=== PATIENT | male | born 1985 | race Caucasian/White ===

== ENCOUNTER 2020-09-13 09:32 | Outpatient (REF) | payer OTHER, SELFPAY ==
[2020-09-13 11:15] LABS: Hematocrit 41.2 % (42-52); Hemoglobin 14.1 g/dl (14.0-18.0); Mean Corpuscular HGB Conc 34.2 g/dl (31.0-36.0); Mean Corpuscular Hemoglobin 30.5 pg (27.0-33.0); Mean Platelet Volume 10.5 fL (9.4-12.4); Platelet Count 293 X10*3/uL (160-400); Red Blood Count 4.63 X10*6/uL (4.60-5.80); Red Cell Distribution Width 12.6 % (11.0-16.0)
[2020-09-13 11:35] LABS: Alanine Aminotransferase 27 U/L (0-40); Albumin Level 4.5 g/dL (3.5-5.0); Alkaline Phosphatase 70 U/L (39-117); Anion Gap 13 (12-20); Aspartate Amino Transferase 22 U/L (5-37); Bilirubin Total 0.9 mg/dL (0.0-1.0); Blood Urea Nitrogen 14 mg/dL (9-16); Calcium 9.6 mg/dL (8.4-10.2); Carbon Dioxide 27 mmol/L (22-29); Chloride 104 mmol/L (96-108); Cholesterol 217 mg/dL; Estimated Glomerular Filt Rate > 60; Glucose Fasting 83 mg/dL (60-99); HDL Cholesterol 45 mg/dL; LDL Cholesterol Calculated 158 mg/dl; Potassium 4.2 mmol/L (3.3-5.1); Sodium 140 mmol/L (135-145); Total Protein 7.8 g/dL (6.5-8.0); Triglycerides 70 mg/dL
== END 2020-09-13 09:33 | disposition home or self-care (01) ==
LOC: HO.HMGCLDS 09:32
PROVIDERS: PCP Internal Medicine; Visit Provider Internal Medicine
DX: Z00.00 Encounter for general adult medical examination without abnormal findings (principal)
CPT/HCPCS: 36415; 80053; 80061; 85027

== ENCOUNTER 2021-02-27 14:18 | Outpatient (REF) | payer OTHER, SELFPAY ==
[2021-02-27 16:56] LABS: Cholesterol 239 mg/dL; HDL Cholesterol 42 mg/dL; LDL Cholesterol Calculated 177 mg/dl; Triglycerides 104 mg/dL
[2021-03-02 09:01] LABS: SARS COV2 IgG Negative (Negative)
== END 2021-02-27 14:19 | disposition home or self-care (01) ==
LOC: HO.HMGCLDS 14:18
PROVIDERS: Absent Provider Physician Assistant Medical; PCP Internal Medicine; Visit Provider Internal Medicine
DX: Z00.00 Encounter for general adult medical examination without abnormal findings (principal); Z20.822 Contact with and (suspected) exposure to COVID-19; E78.5 Hyperlipidemia, unspecified
CPT/HCPCS: 36415; 80061; 86769

== ENCOUNTER 2021-09-15 08:42 | Outpatient (REF) | payer OTHER, SELFPAY ==
[2021-09-15 11:08] LABS: MANUAL DIFF FLAG NO
[2021-09-15 11:26] LABS: Basophils Percent Auto 0.5 % (0-2); Eosinophils Absolute Auto 0.1 X10*3/uL (0.0-0.4); Eosinophils Percent Auto 1.3 % (0-4); Hematocrit 40.4 % (42.0-52.0); Hemoglobin 13.8 g/dl (14.0-18.0); Imm Gran Abs Auto 0.02 X10*3/uL (0.00-0.03); Imm Gran Pct Auto 0.5 % (0.0-0.4); Lymphocytes Absolute Auto 1.3 X10*3/uL (1.2-4.9); Lymphocytes Percent Auto 34.4 % (20-40); Mean Corpuscular HGB Conc 34.2 g/dl (31.0-36.0); Mean Corpuscular Hemoglobin 30.9 pg (27.0-33.0); Mean Corpuscular Volume 90.4 fL (80.0-98.0); Mean Platelet Volume 10.8 fL (9.4-12.4); Monocytes Absolute Auto 0.3 X10*3/uL (0.1-1.2); Monocytes Percent Auto 8.9 % (2-11); Neutrophils Absolute Auto 2.1 x10*3/uL (2.0-8.3); Neutrophils Percent Auto 54.4 % (45-73); Platelet Count 290 X10*3/uL (160-400); Red Blood Count 4.47 X10*6/uL (4.60-5.80); Red Cell Distribution Width 13.2 % (11.0-16.0); White Blood Count 3.8 X10*3/uL (4.8-10.8)
[2021-09-15 11:55] LABS: Alanine Aminotransferase 41 U/L (0-40); Albumin Level 4.4 g/dL (3.5-5.0); Alkaline Phosphatase 55 U/L (39-117); Anion Gap 12 (12-20); Aspartate Amino Transferase 21 U/L (5-37); Bilirubin Total 0.6 mg/dL (0.0-1.0); Blood Urea Nitrogen 13 mg/dL (9-16); Calcium 9.5 mg/dL (8.4-10.2); Carbon Dioxide 27 mmol/L (22-29); Chloride 104 mmol/L (96-108); Cholesterol 202 mg/dL; Estimated Glomerular Filt Rate > 60; Glucose Fasting 98 mg/dL (60-99); HDL Cholesterol 42 mg/dL; LDL Cholesterol Calculated 140 mg/dl; Potassium 4.3 mmol/L (3.3-5.1); Sodium 139 mmol/L (135-145); Total Protein 7.5 g/dL (6.5-8.0); Triglycerides 100 mg/dL
== END 2021-09-15 08:43 | disposition home or self-care (01) ==
LOC: HO.HMGCLDS 08:42
PROVIDERS: PCP Internal Medicine; Visit Provider Internal Medicine
DX: Z00.00 Encounter for general adult medical examination without abnormal findings (principal); E78.5 Hyperlipidemia, unspecified
CPT/HCPCS: 36415; 80053; 80061; 85025

== ENCOUNTER 2022-05-19 06:14 | Outpatient (REF) | payer OTHER, SELFPAY | END 2022-05-19 06:15 | disposition home or self-care (01) | LOC: HO.HMGCLDS 06:14 | PROVIDERS: PCP Internal Medicine; Visit Provider Internal Medicine | DX: Z00.00 Encounter for general adult medical examination without abnormal findings (principal) | CPT/HCPCS: 36415; 86787 ==

== ENCOUNTER 2022-08-01 07:02 | Outpatient (REF) | payer OTHER, SELFPAY | END 2022-08-01 07:03 | disposition home or self-care (01) | LOC: HO.HMGCLDS 07:02 | PROVIDERS: PCP Internal Medicine; Visit Provider Internal Medicine | DX: Z00.00 Encounter for general adult medical examination without abnormal findings (principal) | CPT/HCPCS: 36415; 86735; 86762; 86765 ==

== ENCOUNTER 2022-09-16 10:23 | Outpatient (AMB) | payer OTHER, SELFPAY ==
[2022-09-16 10:52] VITALS: BP 122/84; PULSE 84; O2SAT 98; BMI 34.7
--- NOTE | 2022-09-16 10:52 | A.OFFPC_ITS ---
Vital Signs 09/16/22 10:52 Height 5 ft 10 in Weight 242 lb BMI 34.7 BP 122/84 Blood Pressure Location Lt brachial Position Sitting Pulse 84 Pulse Source Pulse Oximeter Pulse Oximetry (%) 98 Oxygen Delivery Method Room Air Intake Visit Reasons: PE Intake Note: Pt is here today for PE. Allergies No Known Allergies Allergy (Verified 09/16/22 10:54) Medication List - Last Reconciled 09/16/22 by Silva Arriaga MD No Known Home Meds Tobacco use date assessed: 09/16/22 Dental Screening Dental Screen Date: 09/16/22 Did you have a dental visit in the last 12 months?: Yes Did you have a dental problem in the last 6 months where you did not have access to dental care?: No Was dental information given to patient?: Patient has dentist HPI PE HPI Details Patient presents for physical PFSH Medical History Annual physical exam Hyperlipidemia Family History Father No problems noted. Mother Breast cancer Social History Household Members Other:: , works for [employer] Housing: House Patient Tobacco Use Status: Never used Tobacco e-Cigarette/Vaping Use: Never Used Current occupational status: unemployed Cognitive needs: No Hearing needs: No Vision needs: Yes (contacts) Questionnaire PHQ-9 Over the last 2 weeks, how often have you been bothered by any of the following problems? 1. Little interest or pleasure in doing things: not at all 2. Feeling down, depressed, or hopeless: not at all 3. Trouble falling or staying asleep, or sleeping too much: not at all 4. Feeling tired or having little energy: not at all 5. Poor appetite or overeating: not at all 6. Feeling bad about yourself - or that you are a failure or have let yourself or your family down: not at all 7. Trouble concentrating on things, such as reading the newspaper or watching television: not at all 8. Moving or speaking so slowly that other people could have noticed. Or the opposite - being so fidgety or restless that you have been moving around a lot more than usual: not at all 9. Thoughts that you would be better off or of hurting yourself in some way: not at all Total score: 0 Depression Screening Interpretation: Negative Source: Developed by Drs. Peter Cintron, Jessenia Nelson, Dennis Christopher and colleagues, with an educational tamra from [employer]. Thrive Questionnaire Date Thrive assessed: 09/16/22 I am a: Patient What is your living situation today?: I have a steady place to live Within the past 12 months, did the food you bought not last and you didn't have the money to get more?: Never true Within the past 12 months, did you worry whether your food would run out before you got money to buy more?: Never true Do you have trouble paying for medicines?: No Do you have trouble getting transportation to medical appointments?: No Do you have trouble paying your heating and electricity bill?: No Do you have trouble taking care of your child, family member or friend?: No Do you have trouble with day-to-day activities such as bathing, preparing meals, shopping, managing finances, etc.?: No Are you currently unemployed and looking for a job?: No Are you interested in more education?: No Please select the resources that you would like help with: None Currently or been in a relationship where the following occur: no concerns reported AUDIT C Alcohol Use Questionnaire (AUDIT-C) 1. How often do you have a drink containing alcohol?: Never 3. How often do you have six or more drinks on one occasion?: Never Total Score: 0 ARABELLA-7 AMB Questionnaire ARABELLA-7 Date ARABELLA - 7 assessed: 09/16/22 Feeling nervous, anxious, or on edge: 0 = Not at all Not being able to stop or control worryin = Not at all Worrying too much about different things: 0 = Not at all Trouble relaxin = Not at all Being so restless that it is hard to sit still: 0 = Not at all Becoming easily annoyed or irritable: 0 = Not at all Feeling afraid as if something awful might happen: 0 = Not at all Total ARABELLA-7 score (0-4 normal; 5-9 mild; 10-14 moderate; 15-21 severe): 0 Source: Developed by Drs. Peter LJessenia Whitmore Kurt Kroenke and colleagues, with an educational tamra from [employer]. Review of Systems Const All systems reviewed & are unremarkable except as noted in HPI and below Reports no additional complaints Eyes Reports no additional complaints ENT Reports no additional complaints Card Reports no additional complaints Resp Reports no additional complaints GI Reports no additional complaints Reports no additional complaints Physical exam (Primary Care) Vital Signs: Last Vital Signs Pulse 84 09/16/22 10:52 BP 122/84 09/16/22 10:52 Pulse Ox 98 09/16/22 10:52 Oxygen Delivery Method Room Air 09/16/22 10:52 BMI result Body Mass Index 34.7 Tobacco/Smoking Status: Tobacco use Status Tobacco use date assessed 09/16/22 09/16/22 10:58 Patient Tobacco Use Status Never used Tobacco 09/16/22 10:58 e-Cigarette/Vaping Use Never Used 09/16/22 10:52 PHQ-9: PHQ-9 Score PHQ-9: Total score 0 09/16/22 10:58 Depression Screening Interpretation: Negative Thrive Assessment: Date of Thrive Assessment Date Thrive assessed 09/16/22 09/16/22 10:58 Currently or been in a relationship where the following occur: no concerns reported Const General: no acute distress HENMT Ears: hearing grossly normal bilaterally Throat: Yes posterior oropharynx normal Neck Neck: Yes supple Resp Effort & Inspection: normal respiratory effort Auscultation: clear to auscultation bilaterally Cardio Rhythm: regular rhythm Heart sounds: S1 normal heart sound present and S2 normal heart sound present GI Inspection: Yes normal to inspection Palpation (GI): Soft to palpation Percussion: Yes normal to percussion Auscultation: normal bowel sounds Assessment and Plan Assessment & Plan (1) Anemia: Code(s): D64.9 - Anemia, unspecified Plan: Check iron and B12 level (2) Hyperlipidemia: Code(s): E78.5 - Hyperlipidemia, unspecified Plan: Low-cholesterol diet and regular exercise discussed with the patient (3) Annual physical exam: Code(s): Z00.00 - Encounter for general adult medical examination without abnormal findings Plan: Patient will return for fasting blood work. Orders: Orders Comprehensive [place]. Panel Fast Today D64.9 - Anemia, unspecified, E78.5 - Hyperlipidemia, unspecified, Z00.00 - Encounter for general adult medical examination without abnormal findings Lipid Panel Today D64.9 - Anemia, unspecified, E78.5 - Hyperlipidemia, unspecified, Z00.00 - Encounter for general adult medical examination without abnormal findings Complete Blood Count Auto Diff Today D64.9 - Anemia, unspecified, E78.5 - Hyperlipidemia, unspecified, Z00.00 - Encounter for general adult medical examination without abnormal findings IRON PROFILE Today D64.9 - Anemia, unspecified, E78.5 - Hyperlipidemia, unspecified, Z00.00 - Encounter for general adult medical examination without abnormal findings Hemoglobin Electrophoresis Today D64.9 - Anemia, unspecified, E78.5 - Hyperlipidemia, unspecified, Z00.00 - Encounter for general adult medical examination without abnormal findings Comprehensive Haskell. Panel Fast 365 Days D64.9 - Anemia, unspecified, E78.5 - Hyperlipidemia, unspecified, Z00.00 - Encounter for general adult medical examination without abnormal findings Lipid Panel 365 Days D64.9 - Anemia, unspecified, E78.5 - Hyperlipidemia, unspecified, Z00.00 - Encounter for general adult medical examination without abnormal findings Complete Blood Count Auto Diff 365 Days D64.9 - Anemia, unspecified, E78.5 - Hyperlipidemia, unspecified, Z00.00 - Encounter for general adult medical examination without abnormal findings Vitamin B12 and Folate Today D64.9 - Anemia, unspecified Referrals Dermatology Referral L30.9 - Dermatitis, unspecified Coding Level of Care Code Est Pt Prev Care 18-39y([id number]) Diagnoses Anemia D64.9 Hyperlipidemia E78.5 Annual physical exam Z00.00
== END 2022-09-16 12:41 | disposition home or self-care (01) ==
PROVIDERS: PCP Internal Medicine; Visit Provider Internal Medicine
DX: D64.9 Anemia, unspecified (principal); E78.5 Hyperlipidemia, unspecified; Z00.00 Encounter for general adult medical examination without abnormal findings
CPT/HCPCS: 99395

== ENCOUNTER 2022-09-16 11:36 | Outpatient (REF) | payer OTHER, SELFPAY ==
[2022-09-16 13:48] LABS: MANUAL DIFF FLAG NO
[2022-09-16 13:57] LABS: Basophils Percent Auto 0.6 % (0-2); Eosinophils Percent Auto 0.8 % (0-4); Hematocrit 42.9 % (42.0-52.0); Hemoglobin 14.5 g/dl (14.0-18.0); Imm Gran Abs Auto 0.02 X10*3/uL (0.00-0.03); Imm Gran Pct Auto 0.4 % (0.0-0.4); Lymphocytes Absolute Auto 1.4 X10*3/uL (1.2-4.9); Lymphocytes Percent Auto 26.8 % (20-40); Mean Corpuscular HGB Conc 33.8 g/dl (31.0-36.0); Mean Corpuscular Hemoglobin 30.3 pg (27.0-33.0); Mean Corpuscular Volume 89.6 fL (80.0-98.0); Mean Platelet Volume 10.9 fL (9.4-12.4); Monocytes Absolute Auto 0.5 X10*3/uL (0.1-1.2); Monocytes Percent Auto 10.4 % (2-11); Neutrophils Absolute Auto 3.1 x10*3/uL (2.0-8.3); Platelet Count 291 X10*3/uL (160-400); Red Blood Count 4.79 X10*6/uL (4.60-5.80); Red Cell Distribution Width 12.7 % (11.0-16.0); White Blood Count 5.1 X10*3/uL (4.8-10.8)
[2022-09-16 14:32] LABS: Alanine Aminotransferase 74 U/L (0-40); Albumin Level 4.5 g/dL (3.5-5.0); Alkaline Phosphatase 58 U/L (39-117); Anion Gap 12 (12-20); Aspartate Amino Transferase 32 U/L (5-37); Bilirubin Total 0.5 mg/dL (0.0-1.0); Blood Urea Nitrogen 14 mg/dL (9-16); Carbon Dioxide 26 mmol/L (22-29); Chloride 106 mmol/L (96-108); Cholesterol 250 mg/dL; Estimated Glomerular Filt Rate > 60; Glucose Fasting 87 mg/dL (60-99); HDL Cholesterol 45 mg/dL; Iron 112 mcg/dL (45-160); LDL Cholesterol Calculated 174 mg/dl; Percent Iron Saturation 37 % (15-50); Potassium 4.4 mmol/L (3.3-5.1); Sodium 140 mmol/L (135-145); Total Iron Binding Capacity 302 mcg/dL (228-428); Triglycerides 155 mg/dL; Unsaturated Iron Binding 190 ug/dL
[2022-09-18 21:43] LABS: Hematocrit 43.9 % (38.5-50.0); Hemoglobin 14.7 g/dL (13.2-17.1); MCH 30.1 pg (27.0-33.0); MCV 89.8 fL (80.0-100.0); RBC 4.89 Million/uL (4.20-5.80); RDW 13.2 % (11.0-15.0)
== END 2022-09-16 11:37 | disposition home or self-care (01) ==
LOC: HO.HMGCLDS 11:36
PROVIDERS: PCP Internal Medicine; Visit Provider Internal Medicine
DX: Z00.00 Encounter for general adult medical examination without abnormal findings (principal); D64.9 Anemia, unspecified; E78.5 Hyperlipidemia, unspecified
CPT/HCPCS: 36415; 80053; 80061; 83020; 83540; 85014; 85018; 85025; 85041

== ENCOUNTER 2023-05-03 13:23 | Inpatient (IN) | payer OTHER, SELFPAY ==
--- NOTE | ~2023-05-03 | CT_ITS ---
EXAMINATION: CT ABDOMEN AND PELVIS WITHOUT CONTRAST CLINICAL INFORMATION: Left flank pain. Concern for stone. COMPARISON: None available. TECHNIQUE: Multidetector volumetric imaging was performed from the superior aspect of the liver through the pubic symphysis. Sagittal and coronal reformatted images were obtained on the technologist's workstation. This CT examination was performed using dose optimization techniques as appropriate, variously including the following: *Automated exposure control *Adjustment of mA and/or kV according to patient size (this includes techniques or standardized protocols for targeted exams where dose is matched to indication/reason for exam; i.e. extremities or head) *Use of iterative reconstruction technique DLP: 707 mGy-cm FINDINGS: LUNG BASES: The visualized lung bases are unremarkable. LIVER, GALLBLADDER, AND BILIARY TREE: The liver is normal in size, shape, and attenuation. No focal hepatic lesion or biliary ductal dilatation is present. The gallbladder is unremarkable with no evidence of radiopaque gallstones, gallbladder wall thickening, or obvious pericholecystic inflammatory changes. PANCREAS: Unremarkable. SPLEEN: Unremarkable. ADRENAL GLANDS: Unremarkable. KIDNEYS AND URETERS: Right side: The right kidney is normal in size, shape, and attenuation. No right-sided hydronephrosis, hydroureter, or calculi seen. No perinephric stranding. Left side: The left kidney is minimally enlarged compared with the right side. There is moderate left-sided perinephric stranding. There is mild left hydronephrosis. There is an obstructing distal left ureteral calculus at the level of the inferior aspect of the sacrum. The calculus measures 6.8 mm x 4.7 mm. It measures 1006.31 Hounsfield units. BLADDER: The urinary bladder is decompressed. There is no urinary bladder calculus. GASTROINTESTINAL TRACT: The small and large bowel are unremarkable. The appendix is unremarkable. ABDOMINAL WALL: No significant hernia is appreciated. LYMPH NODES: Normal. VASCULAR: Unremarkable. PELVIC VISCERA: Unremarkable. OSSEOUS STRUCTURES: Unremarkable. CT/CT abdomen pelvis wo IV con IMPRESSION: There is an obstructing distal left ureteral calculus at the level of the inferior aspect of the sacrum. The calculus measures 6.8 mm x 4.7 mm. It measures 1006.31 Hounsfield units. The left kidney is minimally enlarged compared with the right side. There is moderate left-sided perinephric stranding. There is mild left hydronephrosis. Fleischner guidelines were followed.
--- NOTE | ~2023-05-03 | FL_ITS ---
EXAMINATION: XR FLUOROSCOPY WITH IMAGES CLINICAL INFORMATION: Retrograde pyelogram and distal left ureteral calculus. COMPARISON: CT abdomen and pelvis 05/03/2023. TECHNIQUE: Fluoroscopy Supervised By: Dr. Rich Mendoza. Fluoroscopy Time: 31.45 seconds. Cumulative Dose: 12.23 mGy. Images: 3. FINDINGS: Images show a filling defect in the distal ureter. An inflated balloon is noted. Final image demonstrates the cephalad end of presumed internally dwelling double-J ureteral stent. FL/FL guidance in OR IMPRESSION: Fluoroscopy and spot films provided during retrograde pyelogram and stent placement.
--- NOTE | 2023-05-03 13:54 | ED_ITS ---
HPI - General Adult General Chief complaint: Abdominal Pain Stated complaint: pain upon urination pain lower abd Time Seen by Provider: 05/03/23 15:12 Source: patient Mode of arrival: ambulatory Limitations: no limitations History of Present Illness HPI narrative: Toby is a 37 year old presenting today for evaluation of flank plain for 3 days. He reports onset of left lower quadrant pain 3 days ago along with burning with micturition. States that he experienced similar symptoms one year ago in [place]. He saw a urologist in [place] where they diagnosed a kidney stone. He did not require treatment and per patient, he is unaware if he passed the stone. Today, he says the pain is 8/10. When the pain first started 3 days ago, he says the pain was 11/10 and he was about to go to the ER when the pain suddenly subsides. He described the pain at that time as stabbing and as if someone inserted a knife and was ripping down to his groin. Reports nausea and with episodes of vomiting. No fevers. Reports last PO intake as last night. Onset (ago): day(s) (3 days ) Location: back (left lower quadrant/suprapubic/flank region) Radiation: flank Severity: severe and similar to prior episodes Severity scale (1-10): 8 Quality: stabbing Pain Consistency: constant Relieving factors: none Exacerbating factors: none Associated symptoms: nausea/vomiting Related Data Home Medications Medication Instructions Recorded Confirmed No Known Home Meds 09/13/20 05/03/23 Allergies Allergy/AdvReac Type Severity Reaction Status Date / Time No Known Allergies Allergy Verified 09/16/22 10:54 Review of Systems 2 Review of Systems: Yes all other systems are reviewed and are negative [facility] Past Medical History Medical History Annual physical exam Hyperlipidemia Family History Family History Father No problems noted. Mother Breast cancer Social History Social History Household Members Other:: , works for [employer] Housing: House Patient Tobacco Use Status: Never used Tobacco Smoked in Last 30 Days: No e-Cigarette/Vaping Use: Never Used Use of substances other than those prescribed or required for medical reasons: No Advance Directives: No Advance Directives Information Provided: No Current occupational status: unemployed Cognitive needs: No Hearing needs: No Vision needs: Yes (contacts) Physical Exam ED Vital Signs: Vital Signs - 24 hr 05/03/23 13:57 05/03/23 16:59 05/03/23 19:04 Temperature 99.5 F 98.0 F 98.8 F Pulse Rate 95 83 82 Respiratory Rate 22 H 16 16 Blood Pressure 137/94 H 128/73 131/87 Pulse Oximetry 97 97 98 Oxygen Delivery Method Room Air Room Air Room Air BMI result Body Mass Index 31.9 Appearance: Alert. Oriented X3. Well-appearing, resting and appears comfortable Head: normocephalic, atraumatic. CVS: Normal heart rate and rhythm. Pulses normal. Respiratory: No respiratory distress. Breath sounds normal. Abdomen: Soft and nontender. +BS. Pain to deep palpation of left lower quadrant. : No costoverbal tenderness. Pain to palpation of left suprapubic region. Skin: Skin warm and dry. Normal skin color. Normal skin turgor. No rashes. Extremities: No lower extremity edema. No joint swelling. Neuro/psych: Oriented X 3. No motor deficit. Course Course Course Narrative: RME performed by Tatiana Moffett PA-C. Patient is a 37 year old assigned male at presenting to the emergency department with LLQ abdominal pain. Patient has a history of kidney stones and is concerned that he has a stone stuck. Detailed physical exam and review of systems are deferred to the client executive. Labs and imaging ordered. Patient placed back in the waiting room pending room availability and results. Reevaluation(s) Reevaluation #1: signed out to Juan Platt PA-C who will f/u Urology recs Reevaluation #2: Admitted to Urology Service, Dr. Moreno, plan for surgical procedure tomorrow. Medications Administered Generic Name Dose Route Start Last Admin Trade Name Freq PRN Reason Stop Dose Admin Sodium Chloride 1,000 mls @ 100 mls/hr 05/03/23 19:45 05/03/23 19:42 Ns IVCONT 100 mls/hr .Q10H TERENCE Administration Discontinued Medications Generic Name Dose Route Start Last Admin Trade Name Freq PRN Reason Stop Dose Admin Ketorolac Tromethamine 30 mg 05/03/23 15:29 05/03/23 16:03 Ketorolac Tromethamine 30 Mg/Ml Vial IVPUSH 05/03/23 15:30 30 mg ONCE ONE Administration Morphine Sulfate 2 mg 05/03/23 18:12 05/03/23 18:50 Morphine Sulfate 2 Mg/Ml Cartridge IVPUSH 05/03/23 18:13 Not Given ONCE ONE Protocol Ondansetron HCl 4 mg 05/03/23 15:29 05/03/23 16:03 Ondansetron Hcl 4 Mg/2 Ml Vial IVPUSH 05/03/23 15:30 4 mg ONCE ONE Administration Procedures EJ/Peripheral Line Arm R: Time Out Performed: No Skin Cleansed in Sterile Fashion: Yes Size (gauge): 20 IV Secured and Dressing Applied: Yes Patient Tolerated Procedure: well and no complications Medical Decision Making Medical Decision Making [facility] Narrative: Toby is a 37 year old male presenting for evaluation of left lower abdominal/ flank pain for 3 days. He states that his symptoms initially started with burning with micturition 3 days ago and he developed stabbing, pulling pain in the left lower quadrants. Reports that the pain was so severe the other day (12/18) that he was about to go to the ER when it suddenly resolved. Reports onset of pain today to be 5am. Has since been constant. Reports nausea and vomiting. No fever. On examination, he reports his pain to be 8/10 and he appears to be resting comfortably. UA obtained today reveals moderate blood in the urine and is negative for infection. CT abdomen and pelvis without constract reveals an obstructing calculus measuring 6.8 mm x 4.7 mm in the distal left ureter with left hydronephrosis and moderate left-side perinephric stranding. Toby' presentation is consistent with nephrolithiasis. Consult Dr. Moreno for further evaluation and management as it is unlikey that calculus will pass on its own without intervention. Differential Diagnosis Differential Diagnoses: The differential diagnosis associated with the presentation includes nephrolithiasis, UTI, STI, pyelonephritis, cholecystisis Admission/Observation Consideration of admission/observation: Escalation of care including admission/observation considered Consult Healthcare Provider Management of the patient was discussed with: Teacher'S Aide Dr. Moreno Lab Data [facility] Lab Attestation statement: I reviewed the patient's lab results. 05/03/23 14:03 05/03/23 14:03 Labs: Lab Results 05/03/23 05/03/23 Range/Units 14:03 15:08 WBC 8.8 (4.8-10.8) X10*3/uL RBC 4.51 L (4.60-5.80) X10*6/uL Hgb 13.9 L (14.0-18.0) g/dl Hct 39.9 L (42.0-52.0) % MCV 88.5 (80.0-98.0) fL MCH 30.8 (27.0-33.0) pg MCHC 34.8 (31.0-36.0) g/dl RDW 12.6 (11.0-16.0) % Plt Count 252 (160-400) X10*3/uL MPV 10.4 (9.4-12.4) fL Immature Gran % (Auto) 0.3 (0.0-0.4) % Neut % (Auto) 87.9 H (45-73) % Lymph % (Auto) 7.1 L (20-40) % [place] % (Auto) 4.5 (2-11) % Eos % (Auto) 0.0 (0-4) % Baso % (Auto) 0.2 (0-2) % Lymph # (Auto) 0.6 L (1.2-4.9) X10*3/uL Milam # (Auto) 0.4 (0.1-1.2) X10*3/uL Eos # (Auto) 0.0 (0.0-0.4) X10*3/uL Baso # (Auto) 0.0 (0.0-0.2) X10*3/uL Abs Immat Gran (auto) 0.03 (0.00-0.03) X10*3/uL Absolute Neuts (auto) 7.8 (2.0-8.3) x10*3/uL Absolute Nucleated RBC 0.000 (0.0-0.012) X10*3/uL Nucleated RBC % (auto) 0.0 (0.0-0.2) /100WBC Sodium 142 (135-145) mmol/L Potassium 4.1 (3.3-5.1) mmol/L Chloride 107 (96-108) mmol/L Carbon Dioxide 22 (22-29) mmol/L Anion Gap 17 (12-20) BUN 20 H (9-16) mg/dL Creatinine 1.23 (0.5-1.4) mg/dL Estim Creat Clear Calc 99.7 Estimated GFR > 60 Random Glucose 101 (60-115) mg/dL Calcium 9.7 (8.4-10.2) mg/dL Magnesium 1.9 (1.6-2.6) mg/dL Total Bilirubin 0.7 (0.0-1.0) mg/dL AST 27 (5-37) U/L ALT 23 (0-40) U/L Alkaline Phosphatase 66 (39-117) U/L Total Protein 7.9 (6.5-8.0) g/dL Albumin 4.6 (3.5-5.0) g/dL Urine Color Yellow Urine Appearance Clear Urine pH 5.5 (5.0-9.0) Ur Specific [place] 1.025 (1.005-1.025) Urine Protein Trace (Neg-Trace) mg/dL Urine Glucose (UA) Negative (Negative) mg/dL Urine Ketones >=160 (Negative) mg/dL Urine Blood Moderate (2+) H (Negative) Urine Nitrite Negative (Negative) Ur Leukocyte Esterase Negative (Negative) Urine RBC 11-20 H (0-2) /HPF Urine WBC 0-5 (0-5) /HPF Ur Squamous Epith Cells 0-2 (0-2) /HPF Urine Bacteria None Seen (None Seen) Hyaline Casts 0-2 (0-2) /LPF Influenza Type A (PCR) NEGATIVE (Negative) Influenza Type B (PCR) NEGATIVE (Negative) RSV RNA Qual (PCR) NEGATIVE (Negative) SARS-CoV-2 RNA (RT-PCR) NEGATIVE (Negative) Independent Interpretation I performed an independent interpretation of an: CT Scan Interpretation: CT scan w/ large distal stone and hydro, agree w/ radiology read Radiology Impression Discussion of test interpretation with radiology: I have reviewed the radiologist's reading. Radiologist Impression: EXAMINATION: CT ABDOMEN AND PELVIS WITHOUT CONTRAST CLINICAL INFORMATION: Left flank pain. Concern for stone. COMPARISON: None available. TECHNIQUE: Multidetector volumetric imaging was performed from the superior aspect of the liver through the pubic symphysis. Sagittal and coronal reformatted images were obtained on the technologist's workstation. This CT examination was performed using dose optimization techniques as appropriate, variously including the following: *Automated exposure control *Adjustment of mA and/or kV according to patient size (this includes techniques or standardized protocols for targeted exams where dose is matched to indication/reason for exam; i.e. extremities or head) *Use of iterative reconstruction technique DLP: 707 mGy-cm FINDINGS: LUNG BASES: The visualized lung bases are unremarkable. LIVER, GALLBLADDER, AND BILIARY TREE: The liver is normal in size, shape, and attenuation. No focal hepatic lesion or biliary ductal dilatation is present. The gallbladder is unremarkable with no evidence of radiopaque gallstones, gallbladder wall thickening, or obvious pericholecystic inflammatory changes. PANCREAS: Unremarkable. SPLEEN: Unremarkable. ADRENAL GLANDS: Unremarkable. KIDNEYS AND URETERS: Right side: The right kidney is normal in size, shape, and attenuation. No right-sided hydronephrosis, hydroureter, or calculi seen. No perinephric stranding. Left side: The left kidney is minimally enlarged compared with the right side. There is moderate left-sided perinephric stranding. There is mild left hydronephrosis. There is an obstructing distal left ureteral calculus at the level of the inferior aspect of the sacrum. The calculus measures 6.8 mm x 4.7 mm. It measures 1006.31 Hounsfield units. BLADDER: The urinary bladder is decompressed. There is no urinary bladder calculus. GASTROINTESTINAL TRACT: The small and large bowel are unremarkable. The appendix is unremarkable. ABDOMINAL WALL: No significant hernia is appreciated. LYMPH NODES: Normal. VASCULAR: Unremarkable. PELVIC VISCERA: Unremarkable. OSSEOUS STRUCTURES: Unremarkable. CT/CT abdomen pelvis wo IV con IMPRESSION: There is an obstructing distal left ureteral calculus at the level of the inferior aspect of the sacrum. The calculus measures 6.8 mm x 4.7 mm. It measures 1006.31 Hounsfield units. The left kidney is minimally enlarged compared with the right side. There is moderate left-sided perinephric stranding. There is mild left hydronephrosis. Prescription Management I considered prescription management with: Pain Medication Critical Care Time Critical Care Time Critical Care Time: Yes Total Critical Care Time: 32 Attestation: I have personally provided critical care time exclusive of time spent on separately billable procedures. Time includes review of lab data, radiology results, discussion with consultants, and monitoring for potential decompensation. Intervention performed as documented. Discharge Plan Discharge Clinical Impression: Hydronephrosis with renal calculous obstruction Patient Disposition: Admitted As Inpatient
[2023-05-03 13:57] VITALS: BP 137/94; PULSE 95; RESP 22; TEMP 37.5; O2SAT 97; BMI 31.9
[2023-05-03 14:09] LABS: MANUAL DIFF FLAG NO
[2023-05-03 14:12] LABS: Basophils Percent Auto 0.2 % (0-2); Hematocrit 39.9 % (42.0-52.0); Hemoglobin 13.9 g/dl (14.0-18.0); Imm Gran Abs Auto 0.03 X10*3/uL (0.00-0.03); Imm Gran Pct Auto 0.3 % (0.0-0.4); Lymphocytes Absolute Auto 0.6 X10*3/uL (1.2-4.9); Lymphocytes Percent Auto 7.1 % (20-40); Mean Corpuscular HGB Conc 34.8 g/dl (31.0-36.0); Mean Corpuscular Hemoglobin 30.8 pg (27.0-33.0); Mean Corpuscular Volume 88.5 fL (80.0-98.0); Mean Platelet Volume 10.4 fL (9.4-12.4); Monocytes Absolute Auto 0.4 X10*3/uL (0.1-1.2); Monocytes Percent Auto 4.5 % (2-11); Neutrophils Absolute Auto 7.8 x10*3/uL (2.0-8.3); Neutrophils Percent Auto 87.9 % (45-73); Platelet Count 252 X10*3/uL (160-400); Red Blood Count 4.51 X10*6/uL (4.60-5.80); Red Cell Distribution Width 12.6 % (11.0-16.0); White Blood Count 8.8 X10*3/uL (4.8-10.8)
[2023-05-03 14:25] LABS: Alanine Aminotransferase 23 U/L (0-40); Albumin Level 4.6 g/dL (3.5-5.0); Alkaline Phosphatase 66 U/L (39-117); Anion Gap 17 (12-20); Aspartate Amino Transferase 27 U/L (5-37); Bilirubin Total 0.7 mg/dL (0.0-1.0); Blood Urea Nitrogen 20 mg/dL (9-16); Calcium 9.7 mg/dL (8.4-10.2); Carbon Dioxide 22 mmol/L (22-29); Chloride 107 mmol/L (96-108); Creatinine Clr Calc Pharmacy 99.7; Estimated Glomerular Filt Rate > 60; Glucose Random 101 mg/dL (60-115); Magnesium 1.9 mg/dL (1.6-2.6); Potassium 4.1 mmol/L (3.3-5.1); Sodium 142 mmol/L (135-145); Total Protein 7.9 g/dL (6.5-8.0)
[2023-05-03 15:06] LABS: Influenza A PCR NEGATIVE (Negative); Influenza B PCR NEGATIVE (Negative); Resp Syncy Virus RNA Qual PCR NEGATIVE (Negative); SARS COV2 PCR INHOUSE NEGATIVE (Negative)
[2023-05-03 15:24] LABS: Appearance Urine Clear; Color Urine Yellow; Glucose Urine UA Negative (Negative); Leukocyte Esterase Urine Negative (Negative); Nitrite Urine Negative (Negative); PH 5.5 (5.0-9.0); Specific Gravity - Urine 1.025 (1.005-1.025); UMIC TRIGGER UACC YES; Urine Blood Moderate (2+) (Negative); Urine Ketones >=160 mg/dL (Negative); Urine Protein Trace mg/dL (Neg-Trace)
[2023-05-03 15:32] LABS: Bacteria Urine None Seen (None Seen); Hyaline Casts Urine 0-2 /LPF (0-2); Squamous Epithelial Cell Urine 0-2 /HPF (0-2); WBC Urine 0-5 /HPF (0-5)
[2023-05-03] MEDS: Ketorolac Tromethamine 30 MG/ML VIAL IVPUSH (16:03)
[2023-05-03] MEDS: ondansetron HCL 4 MG/2 ML VIAL IVPUSH (16:03)
[2023-05-03 16:59] VITALS: BP 128/73; PULSE 83; RESP 16; TEMP 36.7; O2SAT 97
[2023-05-03 19:04] VITALS: BP 131/87; PULSE 82; RESP 16; TEMP 37.1; O2SAT 98
--- NOTE | 2023-05-03 19:06 | PC.NURSE ---
this rn assumed care of pt, pt resting in stretcher, no acute distress noted. vss.
--- NOTE | 2023-05-03 19:10 | PHA.MEDREC ---
Pharmacy Consult ? Medication Reconciliation Pharmacy has completed the medication reconciliation. Patient reported no medications at home. Sury Vogt, RaymondD
--- NOTE | 2023-05-03 19:12 | MHC.EDTECH ---
patient belongings list done ,vitals taken ,Patient was given sandwiches and [place] for dinner .
--- NOTE | 2023-05-03 19:27 | P.HPGS_ITS ---
History of Present Illness History of Present Illness Date of Service: 05/03/23 Chief complaint: pain upon urination pain lower abd Narrative: Toby Lema is a 37 year old male Present with left flank pain 3 days in duration. Had similar symptoms 1 year ago and saw a urologist in [place] were diagnosed with kidney stones Did not require treatment was unable to pass stone Current pain 09/17. Describes pain as migrating around distal left abdomen to groin Associated periods of nausea with vomiting. Denies fevers, chills, hematuria No aggravating factors, no relieving factors WBC 8.8, creatinine 1.23 Imaging - CT There is moderate left-sided perinephric stranding. There is mild left hydronephrosis. There is an obstructing distal left ureteral calculus at the level of the inferior aspect of the sacrum. The calculus measures 6.8 mm x 4.7 mm Plan admission, hydration, antibiotics, ureteroscopy with stent placement tomorrow Review of Systems Constitutional: Constitutional: Reports as per HPI and Reports no additional constitutional complaints Cardiovascular: Cardiovascular: Reports as per HPI and Reports no additional cardiovascular complaints Respiratory: Respiratory: Reports as per HPI and Reports no additional respiratory complaints Gastrointestinal: Gastrointestinal: Reports as per HPI and Reports no additional gastrointestinal complaints Genitourinary: Genitourinary: Reports as per HPI Musculoskeletal: Musculoskeletal: Reports no additional musculoskeletal complaints and Reports as per HPI Neurologic: Reports system reviewed and no additional complaints, except as documented and Reports as per HPI [facility] Past Medical History Medical History Annual physical exam Hyperlipidemia Family History Family History Father No problems noted. Mother Breast cancer Social History Social History Household Members Other:: , works for [employer] Housing: House Patient Tobacco Use Status: Never used Tobacco Smoked in Last 30 Days: No e-Cigarette/Vaping Use: Never Used Use of substances other than those prescribed or required for medical reasons: No Advance Directives: No Advance Directives Information Provided: No Current occupational status: unemployed Cognitive needs: No Hearing needs: No Vision needs: Yes (contacts) Meds Allergies Allergy/AdvReac Type Severity Reaction Status Date / Time No Known Allergies Allergy Verified 09/16/22 10:54 Home Medications Medication Instructions Recorded Confirmed Last Taken Type No Known Home Meds 09/13/20 05/03/23 Unknown History Physical Exam Vital Signs: Vital Signs: Last Vital Signs Temp 98.8 F 05/03/23 19:04 Pulse 82 05/03/23 19:04 Resp 16 05/03/23 19:04 BP 131/87 05/03/23 19:04 Pulse Ox 98 05/03/23 19:04 O2 Del Method Room Air 05/03/23 19:04 BMI result Body Mass Index 31.9 Const: General: cooperative, healthy appearing, comfortable and no acute distress Orientation/consciousness: patient oriented x3 HEENT: Face and sinus: Yes normal facial exam Mouth: moist mucous membranes Neck: Neck: Yes normal visual inspection, Yes full ROM and Yes trachea midline Chest: Chest palpation & inspection: normal inspection of the chest Resp: Effort & Inspection: normal respiratory effort, able to speak in complete sentences and no respiratory distress GI: Inspection: Yes normal to inspection Back/Spine/Pelvis: Cervical Spine: normal cervical lordosis Thoracic/Lumbar Spine: thoracic and lumbar spine normal to inspection Skin: General skin exam: no rashes or lesions noted Neuro: General: patient oriented x3, tone normal and moves all extremities Extrem: General: Yes normal to inspection and Yes capillary refill normal Results Results Labs: Short CBC 05/03/23 Range/Units 14:03 WBC 8.8 (4.8-10.8) X10*3/uL Hgb 13.9 L (14.0-18.0) g/dl Hct 39.9 L (42.0-52.0) % Plt Count 252 (160-400) X10*3/uL BMP 05/03/23 14:03 Sodium 142 Potassium 4.1 Chloride 107 Carbon Dioxide 22 BUN 20 H Creatinine 1.23 Calcium 9.7 Liver Function 05/03/23 Range/Units 14:03 Total Bilirubin 0.7 (0.0-1.0) mg/dL AST 27 (5-37) U/L ALT 23 (0-40) U/L Alkaline Phosphatase 66 (39-117) U/L Albumin 4.6 (3.5-5.0) g/dL Urine 05/03/23 Range/Units 15:08 Urine Color Yellow Urine Appearance Clear Urine pH 5.5 (5.0-9.0) Ur Specific [place] 1.025 (1.005-1.025) Urine Protein Trace (Neg-Trace) mg/dL Urine Glucose (UA) Negative (Negative) mg/dL Assessment and Plan (1) Hydronephrosis with renal calculous obstruction: Status: Acute (2) Left flank pain: Status: Acute Plan Ureteroscopy We discussed the nature of the decision and reasonable alternatives for performing ureteroscopy. Options such as medical therapy were discussed. Interventions include chemical dissolution, ESWL, ureteroscopy with laser lithotripsy and stent placement, PCNL. The relative uncertainties and benefits related to each alternate procedure were adequately discussed. General surgical risks including, but not limited to - pain, bleeding, infection, myocardial infarction, pulmonary embolus, deep vein thrombosis and cerebrovascular accident which may result in further hospitalization were discussed. Full disclosure of the procedure as well as all major risks, benefits and complications were discussed including but not limited to damage to the urethra, bladder and kidney infection, damage to the ureter, stent migration or malposition, scarring to the renal pelvis, remnant stone fragments, subsequent stone passage with need for secondary procedures. The overall secondary procedure rate is approximately 10-15%. The overall clearance rate is approximately 90-95%. Success of the procedure in the short-term does not necessarily guarantee that long-term success will be maintained. Suitable follow up will need to be maintained. The patient showed understanding of discussion and wishes to proceed with - cystoscopy, retrograde, ureteroscopy, possible lithotripsy/stone basketing and stent on the left side Quality Stroke Does the patient have a stroke diagnosis?: No VTE Prior VTE?: No VTE Risk Level:: Surgical - low VTE Device Contraindication: Treatment Not Indicated VTE Drug Contraindication: Treatment Not Indicated Procedures Date of Service Date of Service: 05/03/23
[2023-05-03] MEDS: 0.9 % Sodium Chloride 1,000 ML 100 ML IVCONT (19:42)
--- NOTE | 2023-05-03 21:14 | MHC.CM.ED ---
CM met with admitted patient with bed assignment pending. A&O x4. Lives with . Emigrated from [place] 5 years ago. Employed. No DME/services. THRIVE assessment negative. PCP verified. D/C plan: Home without services. Pt to arrange transport home. CM will follow for any discharge needs.
[2023-05-03 21:55] VITALS: BP 106/69; PULSE 90; RESP 16; TEMP 36.8; O2SAT 100
--- NOTE | 2023-05-03 21:56 | MHC.EDTECH ---
2200 rounding done ,vitals taken ,I& O done ,Patient comfortable resting in bed ,Call simmons within Pt reach .
--- NOTE | 2023-05-03 22:41 | PC.NURSE ---
report given to Jennifer AGUILERA in overflow.
[2023-05-03 22:59] VITALS: BP 115/74; PULSE 68; RESP 17; TEMP 36.5; O2SAT 97
[2023-05-03] MEDS: 0.9 % Sodium Chloride Flush 3 ML SYRINGE IVFLUSH (23:42)
[2023-05-04] VITALS (9 sets, daily range): BP systolic 104–127; BP diastolic 70–89; PULSE 58–84; RESP 15–16; TEMP 36.3–36.6; O2SAT 98–100
[2023-05-04] MEDS: 0.9 % Sodium Chloride 1,000 ML 100 ML IVCONT (04:35)
--- NOTE | 2023-05-04 04:50 | PC.NURSE ---
pt AOx4, ambulating independently throughout the night pt went to BR 4 times but no stone visualized it. no pain at all. provided urinal and strainer to catch the stone. will cont. monitor.
--- NOTE | 2023-05-04 07:45 | PC.NURSE ---
Report given to SSS
[2023-05-04] MEDS: levoFLOXacin/D5W 500 MG/100 ML PIGGYBACK 100 MG IV (07:50)
--- NOTE | 2023-05-04 08:05 | PC.NURSE ---
Transferred to [facility] with IV fluids and abt running
--- NOTE | 2023-05-04 08:19 | HO.ANESPROP2 ---
[facility] Active Problems Active Problems: All Active Problems (Updated 05/03/23 @ 19:30 by Juanpablo Moreno MD) Left flank pain (Acute) Hydronephrosis with renal calculous obstruction (Acute) Eczema (Acute) Anemia (Acute) Hyperlipidemia (Acute) Annual physical exam (Acute) Past Medical History Medical History Annual physical exam Hyperlipidemia Family History Family History Father No problems noted. Mother Breast cancer Family history of problems with anesthesia: No Surgical History History of Problems with Anesthesia: No Social History Social History Household Members Other:: , works for [employer] Housing: House Patient Tobacco Use Status: Never used Tobacco Smoked in Last 30 Days: No e-Cigarette/Vaping Use: Never Used Use of substances other than those prescribed or required for medical reasons: No Advance Directives: No Advance Directives Information Provided: No Nutrition Risks: No Nutritional Risk Current occupational status: unemployed Cognitive needs: No Hearing needs: No Vision needs: Yes (contacts) Meds Allergies Allergy/AdvReac Type Severity Reaction Status Date / Time No Known Allergies Allergy Verified 05/04/23 08:23 Active Medications: Current Medications Acetaminophen (Acetaminophen 325 Mg Tablet) 650 mg PO Q6H PRN PRN Reason: Pain, Mild (Pain Scale 1-3) Hydromorphone HCl (Hydromorphone Hcl 1 Mg/Ml Syringe) 0.5 mg IVPUSH Q4H PRN; Protocol PRN Reason: Pain, Severe (Pain Scale 7-10) Sodium Chloride (Ns) 1,000 mls @ 100 mls/hr IVCONT .Q10H TERENCE Last Admin: 05/04/23 04:35 Dose: 100 mls/hr Ketorolac Tromethamine (Ketorolac Tromethamine 30 Mg/Ml Vial) 15 mg IVPUSH Q6H PRN PRN Reason: Pain, Mild (Pain Scale 1-3) Stop: 05/08/23 19:30 Oxycodone HCl (Oxycodone Hcl Immed Release 5 Mg Tablet) 5 mg PO Q6H PRN PRN Reason: Pain, Severe (Pain Scale 7-10) Sodium Chloride (0.9 % Sodium Chloride Flush 3 Ml Syringe) 3 ml IVFLUSH QSHIFT TERENCE Last Admin: 05/04/23 07:50 Dose: Not Given Home Medications Medication Instructions Recorded Confirmed Last Taken Type No Known Home Meds 09/13/20 05/03/23 Unknown History Exam Height,Weight and Vital Signs: Height 5 ft 11 in Weight 103.6 kg Last Vital Signs Temp 97.7 F 05/03/23 22:59 Pulse 68 05/03/23 22:59 Resp 17 05/03/23 22:59 BP 115/74 05/03/23 22:59 Pulse Ox 97 05/03/23 22:59 O2 Del Method Room Air 05/03/23 22:59 Pertinent Lab Results Pertinent Lab Results: Laboratory Tests 05/03/23 05/03/23 14:03 15:08 WBC 8.8 RBC 4.51 L Hgb 13.9 L Hct 39.9 L MCV 88.5 MCH 30.8 MCHC 34.8 RDW 12.6 Plt Count 252 MPV 10.4 Immature Gran % (Auto) 0.3 Neut % (Auto) 87.9 H Lymph % (Auto) 7.1 L [place] % (Auto) 4.5 Eos % (Auto) 0.0 Baso % (Auto) 0.2 Lymph # (Auto) 0.6 L [place] # (Auto) 0.4 Eos # (Auto) 0.0 Baso # (Auto) 0.0 Abs Immat Gran (auto) 0.03 Absolute Neuts (auto) 7.8 Absolute Nucleated RBC 0.000 Nucleated RBC % (auto) 0.0 Sodium 142 Potassium 4.1 Chloride 107 Carbon Dioxide 22 Anion Gap 17 BUN 20 H Creatinine 1.23 Estim Creat Clear Calc 99.7 Estimated GFR > 60 Random Glucose 101 Calcium 9.7 Magnesium 1.9 Total Bilirubin 0.7 AST 27 ALT 23 Alkaline Phosphatase 66 Total Protein 7.9 Albumin 4.6 Urine Color Yellow Urine Appearance Clear Urine pH 5.5 Ur Specific [place] 1.025 Urine Protein Trace Urine Glucose (UA) Negative Urine Ketones >=160 Urine Blood Moderate (2+) H Urine Nitrite Negative Ur Leukocyte Esterase Negative Urine RBC 11-20 H Urine WBC 0-5 Ur Squamous Epith Cells 0-2 Urine Bacteria None Seen Hyaline Casts 0-2 Influenza Type A (PCR) NEGATIVE Influenza Type B (PCR) NEGATIVE RSV RNA Qual (PCR) NEGATIVE SARS-CoV-2 RNA (RT-PCR) NEGATIVE Airway Mallampati Class: II TM Dist: >3cm Neck ROM: Full Loose/Missing/Broken Teeth: No Heart: rrr Lungs: cta b/l Assessment and Plan Final Anesthetic Review Family History of Problems with Anesthesia: No History of Problems with Anesthesia: No NPO: Yes ASA Class: I Final Preanesthetic Review: Meds/Allgs Chart Reviewed, Consent Obtained/Reviewed and Anes Risks/Benef Reviewed Anesthetic Plan Anesthetic Plan: GA Disposition: Standard PACU
--- NOTE | 2023-05-04 10:27 | W.PM.OPN ---
Operative Note Operative Note Date of Service: 05/04/23 Narrative: PreOperative Diagnosis:?? Left ureteral stone, left hydronephrosis Post Operative Diagnosis:?? Left ureteral stone, left hydronephrosis, left distal ureteral stricture Procedure: - cystoscopy, left retrograde, balloon dilation left ureteral stricture, left ureteroscopy, stent insertion, 7 Martiniquais by 28 cm Surgeon:?Dr Rich Mendoza Anesthesia:? General Indications for procedure: Procedure: After informed consent was verified the patient was brought to the operating placed on the OR table in supine position.? General Anesthesia was administered per protocol.? The patient was placed in lithotomy position, prepped and draped in the usual sterile fashion.? Safety pause time-out and side of surgery confirmed.? Antibiotics confirmed. 2% lidocaine jelly 10 mL was passed transurethrally. A 22 Martiniquais cystoscope was inserted transurethrally, the bulbous urethra was within normal limits. The prostatic urethra was nonobstructive. The bladder was visualized.? Both ureteric orifices were in normal position. An open-ended ureteral catheter was passed into the left ureteral orifice and a retrograde examination was performed. There was a filling defect in the ureter and dilatation of the proximal ureter, there was narrowing of the distal ureter. A guidewire was passed through the ureteral catheter into the kidney. The balloon dilator size 12 fr by 4 cm was passed over the guide -wire the balloon was inflated to 8 mmHg then increase to 10 mmHg. There is noted to be a short distal stricture. The area was intermittently balloon dilated to allow dilation of the narrowing, there was minimal change in the strictured area. The balloon was deflated and removed. After removing the balloon dilator a 2nd guidewire was then passed into the kidney to use as a safety. The cystoscope was removed, leaving both guidewires in place. One guidewire was used as the safety and was attached to the draping. The semi rigid ureteroscope was passed over one of the guidewires and the narrowed/strictured area was observed in the distal ureter, the ureteroscope was not able to bypass the stricture/narrowing in the distal left ureter. The ureteroscope and 1 guidewire was removed. The cystoscope was passed over the safety guidewire. A? 7 Martiniquais by 28 cm stent was placed into the ureter and renal pelvis under a combination of fluoroscopy and direct visualization. The bladder was emptied.? The rigid cystoscope was removed. ? The patient tolerated the procedure well and was brought to the recovery room in stable condition. Complications: None Drains: Ureteral stent as dictated above
--- NOTE | 2023-05-04 10:28 | MHC.CM.PN ---
Patient has been medically cleared for dc to home today, self care.
--- NOTE | 2023-05-04 10:33 | P.DS_ITS ---
DS: Providers Provider Date of Service: 05/04/23 Date of admission: 05/03/23 19:31 Date of discharge: 05/04/23 Primary care physician: Silva Arriaga MD Admitting clinician: Juanpablo Moreno Attending physician on admission: Juanpablo Moreno Attending physician on discharge: Rich Mendoza Discharging clinician: Rich Mendoza DS: Diagnosis Discharge Diagnosis (1) Hydronephrosis with renal calculous obstruction: Status: Acute (2) Left flank pain: Status: Acute DS: Summary Hospital Course Hospital Course: 37-year-old male admitted with complaints of left flank pain. CT imaging noted left ureteral stone was hydronephrosis. The patient had cystoscopy left ureteral stent placed on 05/04/2023. Status at Discharge Cognitive/behavioral status at discharge: At baseline Functional status at discharge: independent ambulation Overall status at discharge: patient is back to baseline Time Attestation Total time managing care of this patient today: 42 mintues. Discharge Coordination Time (in mins): 42 minutes Quality: Safe Use of Opioids Does Pt have an Active Cancer Diagnosis on the Problem List?: No Quality: Stroke Does the patient have a stroke diagnosis?: No Physical Exam Vital Signs: Vital Signs: Last Vital Signs Temp 97.3 F 05/04/23 09:59 Pulse 71 05/04/23 10:10 Resp 16 05/04/23 10:10 BP 118/81 05/04/23 10:10 Pulse Ox 99 05/04/23 10:10 O2 Del Method Room Air 05/04/23 10:10 O2 Flow Rate 6 05/04/23 09:59 BMI result Body Mass Index 31.9 DS: Data Data Completed and Pending Labs on day of discharge: Laboratory Results - last 24 hr 05/03/23 05/03/23 14:03 15:08 WBC 8.8 RBC 4.51 L Hgb 13.9 L Hct 39.9 L MCV 88.5 MCH 30.8 MCHC 34.8 RDW 12.6 Plt Count 252 MPV 10.4 Immature Gran % (Auto) 0.3 Neut % (Auto) 87.9 H Lymph % (Auto) 7.1 L [place] % (Auto) 4.5 Eos % (Auto) 0.0 Baso % (Auto) 0.2 Lymph # (Auto) 0.6 L [place] # (Auto) 0.4 Eos # (Auto) 0.0 Baso # (Auto) 0.0 Abs Immat Gran (auto) 0.03 Absolute Neuts (auto) 7.8 Absolute Nucleated RBC 0.000 Nucleated RBC % (auto) 0.0 Sodium 142 Potassium 4.1 Chloride 107 Carbon Dioxide 22 Anion Gap 17 BUN 20 H Creatinine 1.23 Estim Creat Clear Calc 99.7 Estimated GFR > 60 Random Glucose 101 Calcium 9.7 Magnesium 1.9 Total Bilirubin 0.7 AST 27 ALT 23 Alkaline Phosphatase 66 Total Protein 7.9 Albumin 4.6 Urine Color Yellow Urine Appearance Clear Urine pH 5.5 Ur Specific [place] 1.025 Urine Protein Trace Urine Glucose (UA) Negative Urine Ketones >=160 Urine Blood Moderate (2+) H Urine Nitrite Negative Ur Leukocyte Esterase Negative Urine RBC 11-20 H Urine WBC 0-5 Ur Squamous Epith Cells 0-2 Urine Bacteria None Seen Hyaline Casts 0-2 Influenza Type A (PCR) NEGATIVE Influenza Type B (PCR) NEGATIVE RSV RNA Qual (PCR) NEGATIVE SARS-CoV-2 RNA (RT-PCR) NEGATIVE Discharge Plan Discharge Anticipated Discharge Date/Time: 05/04/23 10:20 Patient Disposition: Home, Self-Care Discharge Diagnosis: Left ureteral stone, left ureteral stricture Referrals: Silva Arriaga MD [Primary Care Provider] - 1 Week Discharge Medications: New phenazopyridine [Pyridium] 200 mg tablet 200 mg PO Q8H PRN (Reason: bladder, urinary discomfort) Qty: 30 0RF Rx Instructions: take with food oxycodone-acetaminophen [Percocet] 5-325 mg tablet 1 tab PO Q6-8H PRN (Reason: pain) Qty: 8 0RF Rx Instructions: Partial Fill upon patient request. Discharge Orders: Discharge Order (Routine); Ordered 05/04/23 Ordered By: Rich Mendoza Diet: Advance to usual diet Activity on Discharge: As tolerated Stand Alone Forms: Patient Portal Discharge page Care Plan Goals: Hydrate with water - 6- 8 glasses eight ounces Health Concerns: Keep hydrated, follow up with Urology Plan of Treatment: KUB Xray in 2 weeks. Urology follow up in the office in 3 weeks Assessment: Stable
--- NOTE | 2023-05-04 10:58 | PC.NURSE ---
Patient took all belongings with him upon leaving for [facility], transferred to [facility] for update
== END 2023-05-04 17:18 | disposition home or self-care (01) | DRG 661 ==
LOC: HO.ED 16:04 → HO.EDOVER 19:39
PROVIDERS: Physician Assistant Medical; Urology; Admitting Provider Urology; Emergency Provider Emergency Medicine; PCP Internal Medicine; Visit Provider Urology
PROC: 0T778DZ Dilation of Left Ureter with Intraluminal Device, Via Natural or Artificial Opening Endoscopic (ICD-10-PCS; principal; 2023-05-04 14:40)
DX: N13.2 Hydronephrosis with renal and ureteral calculous obstruction (principal); E78.5 Hyperlipidemia, unspecified; Z20.822 Contact with and (suspected) exposure to COVID-19
CPT/HCPCS: 0241U; 36415; 74176; 80053; 81001; 83735; 85025; 99285; C1726; C1769; C2617; J1100; J1885; J1956; J2250; J2405; J2704; J3010; Q9967

== ENCOUNTER → 2023-05-03 15:32 | Outpatient (BNV) | payer OTHER, SELFPAY | PROVIDERS: Emergency Provider Emergency Medicine; PCP Internal Medicine; Visit Provider Urology | DX: N13.2 Hydronephrosis with renal and ureteral calculous obstruction (principal) | CPT/HCPCS: 52332; 74420; 99222; 99239 ==

== ENCOUNTER 2023-05-21 06:25 | Outpatient (REF) | payer OTHER, SELFPAY ==
--- NOTE | ~2023-05-21 | XR_ITS ---
EXAMINATION: XR ABDOMEN KUB CLINICAL INDICATION: Hydronephrosis with renal and ureteral calculus obstruction. COMPARISON: Fluoroscopic guidance in OR, images of 05/04/2023. CT abdomen and pelvis of 05/03/2023. TECHNIQUE: 3 AP views of the abdomen. FINDINGS: Left ureteral double-J stent with proximal and distal ends projecting over left renal pelvis and bladder respectively. Nonobstructive bowel gas pattern. Moderate amount of stool in the colon. No radiopaque renal calculi appreciated. Visualization for calculi limited due to overlying bowel. Previously identified 6.8 mm calculus is no longer identified in distal left ureter. XR/XR KUB IMPRESSION: Left ureteral double-J stent placed. Previously identified 6.8 mm calculus is no longer identified in distal left ureter.
== END 2023-05-21 06:26 | disposition home or self-care (01) ==
LOC: HO.XRAY 06:25
PROVIDERS: PCP Internal Medicine; Visit Provider Urology
DX: N13.2 Hydronephrosis with renal and ureteral calculous obstruction (principal); Z96.0 Presence of urogenital implants
CPT/HCPCS: 74018

== ENCOUNTER 2023-05-26 13:05 | Outpatient (AMB) | payer OTHER, SELFPAY ==
--- NOTE | 2023-05-26 13:35 | A.OFFVIS_ITS ---
Intake Visit Reasons: 3w/KUB/Distal left ureteric stone Intake Note: Patient presents today for a follow-up on Post Op: Meds- Pyridium Allergies to Antibiotic- No Known Allergies Blood Thinner- None Call Or Contact Centre Coach Required: No Accompanied by: Self / Same As Patient Allergies No Known Allergies Allergy (Verified 05/26/23 13:36) HPI Comments Details: Toby is a 37-year-old male who was evaluated at [facility] for left flank pain. CT imaging noted a 6 x 4 mm left distal ureteral stone. The patient underwent cystoscopy ureteroscopy and stent placement. 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 The patient had a KUB done in follow-up the official reading from the radiologist report is not transcribed as yet. I have reviewed the KUB film, I do not visualize the calcification along the distal stent. Plan for Cystoscopy, left ureteroscopy, laser lithotripsy, ureteral stent exchange. Risks discussed included but not limited to, possible need to repeat procedure if stone is not completely fragmented, Irritative voiding symptoms, bladder spasms, urgency, blood in urine. [facility] Medical History Hyperlipidemia Annual physical exam Family History Father No problems noted. Mother Breast cancer Social History Household Members Other:: , works for [employer] Housing: House Patient Tobacco Use Status: Never used Tobacco e-Cigarette/Vaping Use: Never Used Current occupational status: unemployed Cognitive needs: No Hearing needs: No Vision needs: Yes (contacts) Review of Systems Const All systems reviewed & are unremarkable except as noted in HPI and below Reports no additional complaints Eyes Reports no additional complaints ENT Reports no additional complaints Card Reports no additional complaints Resp Reports no additional complaints GI Reports no additional complaints Reports as per HPI Musc Reports no additional complaints Skin/Breast Reports system reviewed and no additional complaints, except as documented Neuro Reports no additional complaints Psych Reports no additional complaints Endo Reports no additional complaints Luis Antonio/Lymph Reports no additional complaints Aller/Immun Reports no additional complaints Results AMB Urinalysis, Automated UA Leukoctes 15 Guevara/uL Last Edit by OSMAR Burleson on 05/26/23 13:34 UA Nitrite Negative Last Edit by Yusuf Amezquita April on 05/26/23 13:34 UA Urobilinogen 0.2 mg/dL Last Edit by Yusuf Amezquita [facility] on 05/26/23 13:3 4 UA Protein 15 mg/dL Last Edit by Yusuf Amezquita April on 05/26/23 13:34 UA pH 6.0 Last Edit by Yusuf Amezquita April on 05/26/23 13:34 UA Blood 200 Lloyd/uL Last Edit by Yusuf Amezquita April on 05/26/23 13:34 3+ Yusuf Amezquita 05/26/23 13:34 UA Specific [place] 1.015 Last Edit by Yusuf Amezquita April on 05/26/23 13: 34 UA Ketone Negative Last Edit by Yusuf Amezquita April on 05/26/23 13:34 UA Bilirubin 0 mg/dL Last Edit by Yusuf Amezquita April on 05/26/23 13:34 UA Glucose 0 mg/dL Last Edit by Yusuf Amezquita [facility] on 05/26/23 13:34 Results Reviewed Results Reviewed: Laboratory Last Values Urine pH (Auto) 6.0 05/26/23 13:29 Specific [place] (Auto) 1.015 05/26/23 13:29 Urine Protein (Auto) 15 mg/dL 05/26/23 13:29 Glucose (UA)(Auto) 0 mg/dL 05/26/23 13:29 Urine Ketones (Auto) Negative 05/26/23 13:29 Urine Blood (Auto) 200 Lloyd/uL 05/26/23 13:29 Urine Nitrite (Auto) Negative 05/26/23 13:29 Urine Bilirubin (Auto) 0 mg/dL 05/26/23 13:29 Urine Urobilinogen (Auto) 0.2 mg/dL 05/26/23 13:29 Leukocyte Esterase (Auto) 15 Guevara/uL 05/26/23 13:29 Date of Service: 05/03/23 EXAMINATION: CT ABDOMEN AND PELVIS WITHOUT CONTRAST CLINICAL INFORMATION: Left flank pain. Concern for stone. COMPARISON: None available. TECHNIQUE: Multidetector volumetric imaging was performed from the superior aspect of the liver through the pubic symphysis. Sagittal and coronal reformatted images were obtained on the technologist's workstation. This CT examination was performed using dose optimization techniques as appropriate, variously including the following: *Automated exposure control *Adjustment of mA and/or kV according to patient size (this includes techniques or standardized protocols for targeted exams where dose is matched to indication/reason for exam; i.e. extremities or head) *Use of iterative reconstruction technique DLP: 707 mGy-cm FINDINGS: LUNG BASES: The visualized lung bases are unremarkable. LIVER, GALLBLADDER, AND BILIARY TREE: The liver is normal in size, shape, and attenuation. No focal hepatic lesion or biliary ductal dilatation is present. The gallbladder is unremarkable with no evidence of radiopaque gallstones, gallbladder wall thickening, or obvious pericholecystic inflammatory changes. PANCREAS: Unremarkable. SPLEEN: Unremarkable. ADRENAL GLANDS: Unremarkable. KIDNEYS AND URETERS: Right side: The right kidney is normal in size, shape, and attenuation. No right-sided hydronephrosis, hydroureter, or calculi seen. No perinephric stranding. Left side: The left kidney is minimally enlarged compared with the right side. There is moderate left-sided perinephric stranding. There is mild left hydronephrosis. There is an obstructing distal left ureteral calculus at the level of the inferior aspect of the sacrum. The calculus measures 6.8 mm x 4.7 mm. It measures 1006.31 Hounsfield units. BLADDER: The urinary bladder is decompressed. There is no urinary bladder calculus. GASTROINTESTINAL TRACT: The small and large bowel are unremarkable. The appendix is unremarkable. ABDOMINAL WALL: No significant hernia is appreciated. LYMPH NODES: Normal. VASCULAR: Unremarkable. PELVIC VISCERA: Unremarkable. OSSEOUS STRUCTURES: Unremarkable. IMPRESSION: There is an obstructing distal left ureteral calculus at the level of the inferior aspect of the sacrum. The calculus measures 6.8 mm x 4.7 mm. It measures 1006.31 Hounsfield units. The left kidney is minimally enlarged compared with the right side. There is moderate left-sided perinephric stranding. There is mild left hydronephrosis. Assessment & Plan Assessment & Plan (1) Ureteral stent present: Code(s): Z96.0 - Presence of urogenital implants Category: Medical (2) Hydronephrosis with renal calculous obstruction: Code(s): N13.2 - Hydronephrosis with renal and ureteral calculous obstruction Category: Medical (3) Left ureteral stone: Code(s): N20.1 - Calculus of ureter Category: Medical Plan Cystoscopy left ureteroscopy, laser lithotripsy, stent exchange Orders: Orders AMB Urinalysis Automated 05/26/23 Z13.9 - Encounter for screening, unspecified Patient Instructions: The patient had an opportunity to ask questions regarding treatment plan. All questions were answered. Imaging, Laboratory studies and physical exam results were discussed and reviewed in detail. No major barriers to understanding were identified. The patient expressed understanding and agreement with the above treatment plan. The patient is aware they should contact our office by phone for worsening of their current condition or the appearance of new symptoms. Compliance is encouraged with any medications and followup testing that is ordered. It is a privilege to be allowed the opportunity to participate in the urologic care of your patient. If you have any questions or concerns regarding treatment for the above conditions please do not hesitate to contact me. The office telephone contact is [phone]. This note is constructed in part using voice recognition software. While every effort has been made to ensure accuracy mellowing machine operator errors may have been included. Yours sincerely, Rich Mendoza MD
== END 2023-05-26 14:21 | disposition home or self-care (01) ==
PROVIDERS: PCP Internal Medicine; Visit Provider Urology
DX: N13.2 Hydronephrosis with renal and ureteral calculous obstruction (principal); Z96.0 Presence of urogenital implants
CPT/HCPCS: 99214

== ENCOUNTER → 2023-05-26 13:05 | Outpatient (BNVA) | payer OTHER, SELFPAY | PROVIDERS: PCP Internal Medicine; Visit Provider Urology | DX: N13.2 Hydronephrosis with renal and ureteral calculous obstruction (principal); Z96.0 Presence of urogenital implants | CPT/HCPCS: 81003 ==

== ENCOUNTER 2023-06-15 09:14 | Day surgery (SDC) | payer OTHER, SELFPAY ==
--- NOTE | 2023-06-11 13:48 | HO.ANESPROP2 ---
Documented by User: Minnie Viramontes NP 06/11/23 13:49 HPI - Anesthesia Eval Consult details Narrative: 37yo M for Left Cystoscopy, Ureteroroscopy, Retro, Laser,with stent exchange s/p same 04/2023 with GA-LMA 5 PMFSH Active Problems Active Problems: All Active Problems Left ureteral stone (Acute) Ureteral stent present (Acute) Hydronephrosis with renal calculous obstruction (Acute) Eczema (Acute) Anemia (Acute) Hyperlipidemia (Acute) Annual physical exam (Acute) Past Medical History Medical History Urethral stone Hyperlipidemia Annual physical exam Family History Family History Father No problems noted. Mother Breast cancer Family history of problems with anesthesia: No Surgical History Surgical History Hx of cystoscopy (05/04/23) History of Problems with Anesthesia: No Social History Social History Household Members Other:: , works for [employer] Housing: House Patient Tobacco Use Status: Never used Tobacco e-Cigarette/Vaping Use: Never Used Use of substances other than those prescribed or required for medical reasons: No Are you DNR?: No Advance Directives: No Advance Directives Information Provided: Yes Current occupational status: unemployed Cognitive needs: No Hearing needs: No Vision needs: Yes (contacts) Meds Allergies Allergy/AdvReac Type Severity Reaction Status Date / Time No Known Allergies Allergy Verified 06/15/23 10:56 Assessment and Plan Assessment Anesthesia Assessment: Chart Reviewed Final Anesthetic Review Family History of Problems with Anesthesia: No History of Problems with Anesthesia: No Documented by User: Diana Enciso MD 06/15/23 12:10 PMFSH Past Medical History Medical History Urethral stone Hyperlipidemia Annual physical exam Family History Family History Father No problems noted. Mother Breast cancer Surgical History Surgical History Hx of cystoscopy (05/04/23) Social History Social History Household Members Other:: , works for [employer] Housing: House Patient Tobacco Use Status: Never used Tobacco e-Cigarette/Vaping Use: Never Used Use of substances other than those prescribed or required for medical reasons: No Are you DNR?: No Advance Directives: No Advance Directives Information Provided: Yes Current occupational status: unemployed Cognitive needs: No Hearing needs: No Vision needs: Yes (contacts) Meds Allergies Allergy/AdvReac Type Severity Reaction Status Date / Time No Known Allergies Allergy Verified 06/15/23 10:56 Exam Airway Mallampati Class: III (full arzate) TM Dist: >3cm Neck ROM: Full Loose/Missing/Broken Teeth: No Heart: RRR Lungs: CTA Assessment and Plan Assessment Anesthesia Assessment: Anesthesia Plan Discussed Final Anesthetic Review NPO: Yes ASA Class: II Final Preanesthetic Review: Meds/Allgs Chart Reviewed, Consent Obtained/Reviewed and Anes Risks/Benef Reviewed Patient Risk: Low Procedure Risk: Low Anesthetic Plan Anesthetic Plan: GA Disposition: Standard PACU
--- NOTE | ~2023-06-15 | FL_ITS ---
EXAMINATION: XR FLUOROSCOPY WITH IMAGES CLINICAL INFORMATION: Left-sided stone. COMPARISON: None available. TECHNIQUE: Fluoroscopy Supervised By: Dr. Mendoza. Fluoroscopy Time: 8.8 seconds. Cumulative Dose: 7.15 mGy. DAP: No DAP on this machine. Images: 2. FINDINGS: Intraoperative fluoroscopy and spot films were performed during a procedure in the OR. Images demonstrating internally dwelling left double-J ureteral stent. Please see Dr. Mendoza's report for complete details. FL/FL guidance in OR IMPRESSION: Intraoperative fluoroscopy and spot films were obtained. Please see Dr. Mendoza's report for complete details.
[2023-06-15 10:53] VITALS: BMI 29.5
--- NOTE | 2023-06-15 11:38 | MHC.SHP ---
Pre-Procedural Eval Section A - 24 Hr Update-Section A only Date of Service: 06/15/23 The patient is an INPATIENT: No The patient has been examined within 24 hours of the surgical procedure. The History & Physical has been completed within 30 days and I have reviewed it.: Yes Section B - Complete if H&P > 30 days Chief Complaint: Hydronephrosis with renal and ureteral calculous o Allergies: Allergies Allergy/AdvReac Type Severity Reaction Status Date / Time No Known Allergies Allergy Verified 06/15/23 10:56 Plan Diagnosis/Plan: Unchanged I have reviewed the history and physical and performed a pertinent physical examination on my patient. No changes have occurred unless specified. Cystoscopy left ureteroscopy laser lithotripsy stent exchange. Time Spent With Patient Time: Total time managing care of this patient today ____ minutes.
[2023-06-15 13:00] VITALS: BP 123/70; PULSE 58; RESP 18; TEMP 36.6; O2SAT 99
[2023-06-15 13:05] VITALS: BP 109/68; PULSE 63; RESP 16; O2SAT 97
[2023-06-15 13:10] VITALS: BP 121/73; PULSE 79; RESP 16; O2SAT 98
[2023-06-15 13:15] VITALS: BP 118/84; PULSE 84; RESP 17; O2SAT 98
--- NOTE | 2023-06-15 13:16 | P.OP_ITS ---
Operative Note Operative Note Date of Service: 06/15/23 Narrative: PreOperative Diagnosis:?? Left ureteral stone, hydronephrosis status post stent Post Operative Diagnosis:?? Left ureteral stone, hydronephrosis status post stent Procedure: Cystoscopy, Left ureteroscopy laser lithotripsy stent exchange, size 6 New [place]alander by 28 cm Surgeon:?Dr Rich Mendoza Anesthesia:? General Indications for procedure: Here for stone fragmentation. Procedure: After informed consent was verified the patient was brought to the operating placed on the OR table in supine position.? General Anesthesia was administered per protocol.? The patient was placed in lithotomy position, prepped and draped in the usual sterile fashion.? Safety pause time-out and side of surgery confirmed.? Antibiotics confirmed. A 22 [place] Ze[place]ander cystoscope was inserted transurethrally, the bulbous urethra was within normal limits. The prostatic urethra was nonobstructive. The bladder was visualized.? Both ureteric orifices were in normal position. The left ureteral stent was curled in the bladder. Using the open-ended ureteral catheter a guidewire was passed along the stent into the kidney. The? distal end of the ureteral stent was grasped with the flexible grasping forceps. The stent was pulled retrograde through the urethra. A guidewire was passed through the stent. A second guidewire was inserted into the left ureter. The cystoscope was removed, leaving both guidewire in place. One guidewire was used as the safety and was attached to the draping. The semi rigid ureteroscope was passed transurethrally over the other guidewire to the level of the stone in the distal right ureter. Laser lithotripsy of the stone was done using the 365 fiber with a combination of dusting settings 0.5 J by 20 hertz alternating with 0.8 J joules by 6 hertz. There was good fragmentation of the stone. The 0 degree basket was used to remove the stone fragments, which were sent for analysis. The ureteroscope was removed. The cystoscope was passed over the safety guidewire. A?6 [place] by 28 cm stent was placed into the ureter and renal pelvis under a combination of fluoroscopy and direct visualization. The string was left at the end of the stent. The bladder was emptied.? The rigid cystoscope was removed. ? The string was taped to the phallus. The patient tolerated the procedure well and was brought to the recovery room in stable condition. Complications: None Drains: Ureteral stent as dictated above
[2023-06-15] MEDS: Phenazopyridine HCL 200 MG TABLET PO (13:26)
[2023-06-15 13:30] VITALS: BP 122/83; PULSE 77; RESP 17; O2SAT 97
[2023-06-15 13:51] VITALS: BP 124/86; PULSE 67; RESP 17; TEMP 36.2; O2SAT 99
[2023-07-06 16:17] LABS: Stone Source LEFT URETERAL STONE
== END 2023-06-15 14:24 | disposition home or self-care (01) ==
PROVIDERS: PCP Internal Medicine; Visit Provider Urology
PROC: (CPT 52356; principal; 2023-06-15 11:10)
DX: N13.2 Hydronephrosis with renal and ureteral calculous obstruction (principal); Z96.0 Presence of urogenital implants; E78.5 Hyperlipidemia, unspecified; Z56.0 Unemployment, unspecified
CPT/HCPCS: 52356; 82365; 88300; C1758; C1769; C2617; J0690; J1100; J1885; J2250; J2405; J2704; J3010; Q9967

== ENCOUNTER → 2023-06-15 09:14 | Outpatient (BNV) | payer OTHER, SELFPAY | PROVIDERS: PCP Internal Medicine; Visit Provider Urology | DX: N13.2 Hydronephrosis with renal and ureteral calculous obstruction (principal) | CPT/HCPCS: 52356 ==

== ENCOUNTER 2023-06-17 10:39 | Outpatient (AMB) | payer OTHER, SELFPAY ==
--- NOTE | 2023-06-17 10:45 | A.OFFVIS_ITS ---
Intake Visit Reasons: stent removal Intake Note: Patient presents today for STENT REMOVAL: Meds: Phenzopyridine Allergies to Antibiotic: No Known Allergies Blood Thinner: None Track Sweeper Required: No Racking Machine Operator: Racking Machine Operator Present Accompanied by: Self / Same As Patient Allergies No Known Allergies Allergy (Verified 06/17/23 10:46) HPI Comments Details: 06/17/2023--Tyler is here for stent removal. s/p left ureteroscopy, laser lithotripsy, ureteral stent exchange on 06/15/23. He had a KUB on 05/21/23, the stone was not visualized on Xray. Intraop the stone was still in the distal ureter. There was good fragmentation of stone with laser, stone analysis pending. The string/dangler was left attached externally taped to phallus. Stent removed by pulling on dangler, Pt tolerated well. Diet sheet given to patient. Discussed further evaluation with 24 hr. urine. Review of chart: 05/26/23--Toby is a 37-year-old male who was evaluated at [facility] for left flank pain. CT imaging noted a 6 x 4 mm left distal ureteral stone. The patient underwent cystoscopy ureteroscopy and stent placement. 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 The patient had a KUB done in follow-up the official reading from the radiologist report is not transcribed as yet. I have reviewed the KUB film, I do not visualize the calcification along the distal stent. 06/17/23--Discussed further evaluation with 24 hr. urine. [facility] Medical History Urethral stone Hyperlipidemia Annual physical exam Surgical History Hx of cystoscopy (05/04/23) Family History Father No problems noted. Mother Breast cancer Social History Household Members Other:: , works for [employer] Housing: House Patient Tobacco Use Status: Never used Tobacco e-Cigarette/Vaping Use: Never Used Current occupational status: unemployed Cognitive needs: No Hearing needs: No Vision needs: Yes (contacts) Review of Systems Const All systems reviewed & are unremarkable except as noted in HPI and below Reports no additional complaints Eyes Reports no additional complaints ENT Reports no additional complaints Card Reports no additional complaints Resp Reports no additional complaints GI Reports no additional complaints Reports as per HPI Musc Reports no additional complaints Skin/Breast Reports system reviewed and no additional complaints, except as documented Neuro Reports no additional complaints Psych Reports no additional complaints Endo Reports no additional complaints Luis Antonio/Lymph Reports no additional complaints Aller/Immun Reports no additional complaints Office Procedures Cystoscopy Consent Discussed risk and benefit or proposed procedure with the patient. Information consent for procedure given to the patient. Discussed technical aspects, risks, benefits and alternatives in full. Addressed all of the patient's questions and concerns regarding the procedure. The patient demonstrated knowledge and understanding. They wish to proceed with this procedure. Preparation The patient was prepped in the usual manner. A support services specialist was present and in the room. Genitalia was prepped with betadine solution in a sterile manner. Lidocaine Jelly 2% was placed into the urethra and 16Fr flexible Olympus cystoscope was inserted into the meatus after adequate lubrication. Procedure procedure cancelled per Dr Rose as pt has string stent in place Procedure code (CPT) selection complete (PROCEDURE NOT COMPLETED, PLS SEE NOTE) Office Meds lidocaine HCl 2 % mucosal jelly in applicator Performing Provider: Rich Mendoza MD [facility] Documented (not given) by: Marcelina Canales RN on 06/17/23 10:54 Reason Not Given: No Longer Necessary naproxen 500 mg tablet Performing Provider: Rich Mendoza MD Performing [place] [facility] Documented (not given) by: Marcelina Canales RN on 06/17/23 10:54 Reason Not Given: No Longer Necessary ciprofloxacin HCl 500 mg tablet Performing Provider: Rich Mendoza MD Performing Location[place] [facility] Documented (not given) by: Marcelina Canales RN on 06/17/23 10:54 Reason Not Given: No Longer Necessary Results AMB Urinalysis, Automated 2 UA Leukoctes 70 Guevara/uL Last Edit by OSMAR Burleson on 06/17/23 10:52 UA Nitrite Negative Last Edit by Yusuf Amezquita April on 06/17/23 10:52 UA Urobilinogen 0.2 mg/dL Last Edit by Yusuf Amezquita April on 06/17/23 10:5 2 UA Protein 15 mg/dL Last Edit by Yusuf Amezquita April on 06/17/23 10:52 UA pH 6.0 Last Edit by Yusuf Amezquita [facility] on 06/17/23 10:52 UA Blood 80 Lloyd/uL Last Edit by Yusuf Amezquita April on 06/17/23 10:52 2+ Yusuf Amezquita 06/17/23 10:52 UA Specific [place] 1.015 Last Edit by Yusuf Amezquita April on 06/17/23 10: 52 UA Ketone Negative Last Edit by Yusuf Amezquita April on 06/17/23 10:52 UA Bilirubin 0 mg/dL Last Edit by Yusuf Amezquita [facility] on 06/17/23 10:52 UA Glucose 0 mg/dL Last Edit by Yusuf Amezquita April on 06/17/23 10:52 Results Reviewed Results Reviewed: Laboratory Last Values Urine pH (Auto) 6.0 06/17/23 10:46 Specific [place] (Auto) 1.015 06/17/23 10:46 Urine Protein (Auto) 15 mg/dL 06/17/23 10:46 Glucose (UA)(Auto) 0 mg/dL 06/17/23 10:46 Urine Ketones (Auto) Negative 06/17/23 10:46 Urine Blood (Auto) 80 Lloyd/uL 06/17/23 10:46 Urine Nitrite (Auto) Negative 06/17/23 10:46 Urine Bilirubin (Auto) 0 mg/dL 06/17/23 10:46 Urine Urobilinogen (Auto) 0.2 mg/dL 06/17/23 10:46 Leukocyte Esterase (Auto) 70 Guevara/uL 06/17/23 10:46 Date of Service: 05/21/23 EXAMINATION: XR ABDOMEN KUB CLINICAL INDICATION: Hydronephrosis with renal and ureteral calculus obstruction. COMPARISON: Fluoroscopic guidance in OR, images of 05/04/2023. CT abdomen and pelvis of 05/03/2023. TECHNIQUE: 3 AP views of the abdomen. FINDINGS: Left ureteral double-J stent with proximal and distal ends projecting over left renal pelvis and bladder respectively. Nonobstructive bowel gas pattern. Moderate amount of stool in the colon. No radiopaque renal calculi appreciated. Visualization for calculi limited due to overlying bowel. Previously identified 6.8 mm calculus is no longer identified in distal left ureter. IMPRESSION: Left ureteral double-J stent placed. Previously identified 6.8 mm calculus is no longer identified in distal left ureter. Date of Service: 05/03/23 EXAMINATION: CT ABDOMEN AND PELVIS WITHOUT CONTRAST CLINICAL INFORMATION: Left flank pain. Concern for stone. COMPARISON: None available. TECHNIQUE: Multidetector volumetric imaging was performed from the superior aspect of the liver through the pubic symphysis. Sagittal and coronal reformatted images were obtained on the technologist's workstation. This CT examination was performed using dose optimization techniques as appropriate, variously including the following: *Automated exposure control *Adjustment of mA and/or kV according to patient size (this includes techniques or standardized protocols for targeted exams where dose is matched to indication/reason for exam; i.e. extremities or head) *Use of iterative reconstruction technique DLP: 707 mGy-cm FINDINGS: LUNG BASES: The visualized lung bases are unremarkable. LIVER, GALLBLADDER, AND BILIARY TREE: The liver is normal in size, shape, and attenuation. No focal hepatic lesion or biliary ductal dilatation is present. The gallbladder is unremarkable with no evidence of radiopaque gallstones, gallbladder wall thickening, or obvious pericholecystic inflammatory changes. PANCREAS: Unremarkable. SPLEEN: Unremarkable. ADRENAL GLANDS: Unremarkable. KIDNEYS AND URETERS: Right side: The right kidney is normal in size, shape, and attenuation. No right-sided hydronephrosis, hydroureter, or calculi seen. No perinephric stranding. Left side: The left kidney is minimally enlarged compared with the right side. There is moderate left-sided perinephric stranding. There is mild left hydronephrosis. There is an obstructing distal left ureteral calculus at the level of the inferior aspect of the sacrum. The calculus measures 6.8 mm x 4.7 mm. It measures 1006.31 Hounsfield units. BLADDER: The urinary bladder is decompressed. There is no urinary bladder calculus. GASTROINTESTINAL TRACT: The small and large bowel are unremarkable. The appendix is unremarkable. ABDOMINAL WALL: No significant hernia is appreciated. LYMPH NODES: Normal. VASCULAR: Unremarkable. PELVIC VISCERA: Unremarkable. OSSEOUS STRUCTURES: Unremarkable. IMPRESSION: There is an obstructing distal left ureteral calculus at the level of the inferior aspect of the sacrum. The calculus measures 6.8 mm x 4.7 mm. It measures 1006.31 Hounsfield units. The left kidney is minimally enlarged compared with the right side. There is moderate left-sided perinephric stranding. There is mild left hydronephrosis. Assessment & Plan Assessment & Plan (1) Ureteral stent present: Code(s): Z96.0 - Presence of urogenital implants Category: Medical (2) Hydronephrosis with renal calculous obstruction: Code(s): N13.2 - Hydronephrosis with renal and ureteral calculous obstruction Category: Medical (3) Left ureteral stone: Code(s): N20.1 - Calculus of ureter Category: Medical Plan Discussed further evaluation with 24 hr. urine. Orders: Orders AMB Urinalysis Automated Today Z13.9 - Encounter for screening, unspecified AMB Cystoscopy Today N13.2 - Hydronephrosis with renal and ureteral calculous obstruction Patient Instructions: The patient had an opportunity to ask questions regarding treatment plan. The patient expressed understanding and agreement with the above treatment plan. The patient is aware they should contact our office by phone for worsening of their current condition or the appearance of new symptoms. Compliance is encouraged with any medications and followup testing that is ordered. It is a privilege to be allowed the opportunity to participate in the urologic care of your patient. If you have any questions or concerns regarding treatment for the above conditions please do not hesitate to contact me. The office telephone contact is [phone]. This note is constructed in part using voice recognition software. While every effort has been made to ensure accuracy line repairer errors may have been included. Yours sincerely, Rich Mendoza MD Coding Level of Care Code Est Pt Level 3 (30294) Diagnoses Ureteral stent present Z96.0 Hydronephrosis with renal calculous obstruction N13.2 Left ureteral stone N20.1
== END 2023-06-17 11:34 | disposition home or self-care (01) ==
PROVIDERS: PCP Internal Medicine; Visit Provider Urology
DX: N13.2 Hydronephrosis with renal and ureteral calculous obstruction (principal); Z96.0 Presence of urogenital implants; Z13.9 Encounter for screening, unspecified
CPT/HCPCS: 99213

== ENCOUNTER → 2023-06-17 10:39 | Outpatient (BNVA) | payer OTHER, SELFPAY | PROVIDERS: PCP Internal Medicine; Visit Provider Urology | DX: N13.2 Hydronephrosis with renal and ureteral calculous obstruction (principal) | CPT/HCPCS: 81003 ==

== ENCOUNTER 2023-07-08 08:26 | Outpatient (AMB) | payer OTHER, SELFPAY ==
--- NOTE | 2023-07-08 08:28 | A.OFFVIS_ITS ---
Intake Visit Reasons: Ureteroscopy/stent exchange- follow up Intake Note: Patient presents today for a follow-up: Meds- Pyridium- no longer taking Allergies to Antibiotic- No Known Allergies Blood Thinner- None Command Center Officer Required: No Accompanied by: Self / Same As Patient Allergies No Known Allergies Allergy (Verified 07/08/23 08:28) HPI Comments Details: 07/08/2023--Torey is here in follow-up, he is being evaluated due to nephrolithiasis. He is status post ureteroscopy laser lithotripsy due to obstructing left ureteral stone. I have discussed diet modification and discussed evaluation with 24 hour urine collection. The patient travels a lot and has not had time to commit to the 24 hour timeframe to collect the urine. I have reviewed the stone analysis. Calcium oxalate dihydrate 20%, calcium oxalate monohydrate 80%. The patient will call when he has completed the 24 hour urine and office will schedule follow-up at that time for me to review results with him. Review of chart: 06/17/2023--Tyler is here for stent removal. s/p left ureteroscopy, laser lithotripsy, ureteral stent exchange on 06/15/23. He had a KUB on 05/21/23, the stone was not visualized on Xray. Intraop the stone was still in the distal ureter. There was good fragmentation of stone with laser, stone analysis pending. The string/dangler was left attached externally taped to phallus. Stent removed by pulling on dangler, Pt tolerated well. Diet sheet given to patient. Discussed further evaluation with 24 hr. urine. 05/26/23--Toby is a 37-year-old male who was evaluated at [facility] for left flank pain. CT imaging noted a 6 x 4 mm left distal ureteral stone. The patient underwent cystoscopy ureteroscopy and stent placement. 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 The patient had a KUB done in follow-up the official reading from the radiologist report is not transcribed as yet. I have reviewed the KUB film, I do not visualize the calcification along the distal stent. [facility] Medical History Urethral stone Hyperlipidemia Annual physical exam Surgical History Hx of cystoscopy (05/04/23) Family History Father No problems noted. Mother Breast cancer Social History Household Members Other:: , works for [employer] Housing: House Patient Tobacco Use Status: Never used Tobacco e-Cigarette/Vaping Use: Never Used Current occupational status: unemployed Cognitive needs: No Hearing needs: No Vision needs: Yes (contacts) Review of Systems Const All systems reviewed & are unremarkable except as noted in HPI and below Reports no additional complaints Eyes Reports no additional complaints ENT Reports no additional complaints Card Reports no additional complaints Resp Reports no additional complaints GI Reports no additional complaints Reports as per HPI Musc Reports no additional complaints Skin/Breast Reports system reviewed and no additional complaints, except as documented Neuro Reports no additional complaints Psych Reports no additional complaints Endo Reports no additional complaints Luis Antonio/Lymph Reports no additional complaints Aller/Immun Reports no additional complaints Results AMB Urinalysis, Automated UA Leukoctes 0 Guevara/uL Last Edit by OSMAR Burleson on 07/08/23 08:38 UA Nitrite Negative Last Edit by OSMAR Burleson on 07/08/23 08:38 UA Urobilinogen 0.2 mg/dL Last Edit by OSMAR Burleson on 07/08/23 08:3 8 UA Protein 0 mg/dL Last Edit by OSMAR Burleson on 07/08/23 08:38 UA pH 6.0 Last Edit by OSMAR Burleson on 07/08/23 08:38 UA Blood 0 Lloyd/uL Last Edit by OSMAR Burleson on 07/08/23 08:38 UA Specific [place] 1.020 Last Edit by Yusuf Amezquita OSMAR on 07/08/23 08: 38 UA Ketone Negative Last Edit by Yusuf Amezquita OSMAR on 07/08/23 08:38 UA Bilirubin 0 mg/dL Last Edit by Yusuf Amezquita OSMAR on 07/08/23 08:38 UA Glucose 0 mg/dL Last Edit by Yusuf Amezquita OSMAR on 07/08/23 08:38 Results Reviewed Results Reviewed: HANNAH: 06/15/231246 STATUS: COMP REQ : [id number] RECD: 06/15/[address]: Rich Mendoza MD COMP: 07/06/23161 ENTERED: 06/15/[address]: Silva Arriaga MD ORDERED: Kidney Stone QUERIES: Kidney Stone Source: Lt [id number] Test Result Flag Reference Component 1 SEE NOTE Calcium Oxalate Dihydrate ([place]) 20% Calcium Oxalate Monohydrate ([place]) 80% See Note 1 Stone Weight 0.035 g Note 1 This test was developed and its analytical performance characteristics have been determined by [facility]. It has not been cleared or approved by the FDA. This assay has been validated pursuant to the CLIA regulations and is used for clinical purposes. THIS TEST WAS PERFORMED AT: [facility] [address] [id number] JAZ LUNA MD Stone Source LEFT URETERAL STONE Date of Service: 05/21/23 EXAMINATION: XR ABDOMEN KUB CLINICAL INDICATION: Hydronephrosis with renal and ureteral calculus obstruction. COMPARISON: Fluoroscopic guidance in OR, images of 05/04/2023. CT abdomen and pelvis of 05/03/2023. TECHNIQUE: 3 AP views of the abdomen. FINDINGS: Left ureteral double-J stent with proximal and distal ends projecting over left renal pelvis and bladder respectively. Nonobstructive bowel gas pattern. Moderate amount of stool in the colon. No radiopaque renal calculi appreciated. Visualization for calculi limited due to overlying bowel. Previously identified 6.8 mm calculus is no longer identified in distal left ureter. IMPRESSION: Left ureteral double-J stent placed. Previously identified 6.8 mm calculus is no longer identified in distal left ureter. Date of Service: 05/03/23 EXAMINATION: CT ABDOMEN AND PELVIS WITHOUT CONTRAST CLINICAL INFORMATION: Left flank pain. Concern for stone. COMPARISON: None available. TECHNIQUE: Multidetector volumetric imaging was performed from the superior aspect of the liver through the pubic symphysis. Sagittal and coronal reformatted images were obtained on the technologist's workstation. This CT examination was performed using dose optimization techniques as appropriate, variously including the following: *Automated exposure control *Adjustment of mA and/or kV according to patient size (this includes techniques or standardized protocols for targeted exams where dose is matched to indication/reason for exam; i.e. extremities or head) *Use of iterative reconstruction technique DLP: 707 mGy-cm FINDINGS: LUNG BASES: The visualized lung bases are unremarkable. LIVER, GALLBLADDER, AND BILIARY TREE: The liver is normal in size, shape, and attenuation. No focal hepatic lesion or biliary ductal dilatation is present. The gallbladder is unremarkable with no evidence of radiopaque gallstones, gallbladder wall thickening, or obvious pericholecystic inflammatory changes. PANCREAS: Unremarkable. SPLEEN: Unremarkable. ADRENAL GLANDS: Unremarkable. KIDNEYS AND URETERS: Right side: The right kidney is normal in size, shape, and attenuation. No right-sided hydronephrosis, hydroureter, or calculi seen. No perinephric stranding. Left side: The left kidney is minimally enlarged compared with the right side. There is moderate left-sided perinephric stranding. There is mild left hydronephrosis. There is an obstructing distal left ureteral calculus at the level of the inferior aspect of the sacrum. The calculus measures 6.8 mm x 4.7 mm. It measures 1006.31 Hounsfield units. BLADDER: The urinary bladder is decompressed. There is no urinary bladder calculus. GASTROINTESTINAL TRACT: The small and large bowel are unremarkable. The appendix is unremarkable. ABDOMINAL WALL: No significant hernia is appreciated. LYMPH NODES: Normal. VASCULAR: Unremarkable. PELVIC VISCERA: Unremarkable. OSSEOUS STRUCTURES: Unremarkable. IMPRESSION: There is an obstructing distal left ureteral calculus at the level of the inferior aspect of the sacrum. The calculus measures 6.8 mm x 4.7 mm. It measures 1006.31 Hounsfield units. The left kidney is minimally enlarged compared with the right side. There is moderate left-sided perinephric stranding. There is mild left hydronephrosis. Assessment & Plan Assessment & Plan (1) Calcium nephrolithiasis: Code(s): N20.0 - Calculus of kidney Category: Medical Plan Patient will call when he has completed the 24 hour urine and sent to to [facility] office to schedule a tele health, video follow-up to review results. Orders: Orders AMB Urinalysis Automated Today Z13.9 - Encounter for screening, unspecified Patient Instructions: The patient had an opportunity to ask questions regarding treatment plan. The patient expressed understanding and agreement with the above treatment plan. The patient is aware they should contact our office by phone for worsening of their current condition or the appearance of new symptoms. Compliance is encouraged with any medications and followup testing that is ordered. It is a privilege to be allowed the opportunity to participate in the urologic care of your patient. If you have any questions or concerns regarding treatment for the above conditions please do not hesitate to contact me. The office telephone contact is [phone]. This note is constructed in part using voice recognition software. While every e ffort has been made to ensure accuracy transfer man errors may have been included. Yours sincerely, Rich Mendoza MD Coding Level of Care Code Est Pt Level 3 (76215) Diagnoses Calcium nephrolithiasis N20.0
== END 2023-07-08 08:50 | disposition home or self-care (01) ==
PROVIDERS: PCP Internal Medicine; Visit Provider Urology
DX: Z13.9 Encounter for screening, unspecified (principal); N20.0 Calculus of kidney
CPT/HCPCS: 99213

== ENCOUNTER → 2023-07-08 08:26 | Outpatient (BNVA) | payer OTHER, SELFPAY | PROVIDERS: PCP Internal Medicine; Visit Provider Urology | DX: N20.0 Calculus of kidney (principal) | CPT/HCPCS: 81003 ==

== ENCOUNTER 2023-09-06 11:48 | Outpatient (AMB) | payer OTHER, SELFPAY ==
--- NOTE | 2023-09-06 11:53 | A.OFFVIS_ITS ---
Intake Visit Reasons: 12w/[employer](SET) Intake Note: Patient presents today for 12w follow-up/juanita SAUL Meds- Pyridium- none Allergies to Antibiotic-none Blood Thinner- None Radio Announcer Required: No Accompanied by: Self / Same As Patient Allergies No Known Allergies Allergy (Verified 10/01/23 12:12) Medication List - Last Reconciled 09/06/23 by Rich Mendoza MD pyridoxine (vitamin B6) 100 mg PO DAILY 90 days HPI Comments Details: 09/06/23--Discussed 24 hour urine results: Total volume 2.34 L, Calcium 222 mg; Oxalate 41 mg, Sodium 289, Citrate 552 mg. Instructed on importance of fluid intake, Low oxalate diet, low sodium diet. Discussed low oxalate and low sodium diet. Will start Vit B6 100 mg, FU one year, renal US. Review of chart: 07/08/2023--Torey is here in follow-up, he is being evaluated due to nephrolithiasis. He is status post ureteroscopy laser lithotripsy due to obstructing left ureteral stone. I have discussed diet modification and discussed evaluation with 24 hour urine collection. The patient travels a lot and has not had time to commit to the 24 hour timeframe to collect the urine. I have reviewed the stone analysis. Calcium oxalate dihydrate 20%, calcium oxalate monohydrate 80%. The patient will call when he has completed the 24 hour urine and office will schedule follow-up at that time for me to review results with him. 06/17/2023--Tyler is here for stent removal. s/p left ureteroscopy, laser lithotripsy, ureteral stent exchange on 06/15/23. He had a KUB on 05/21/23, the stone was not visualized on Xray. Intraop the stone was still in the distal ureter. There was good fragmentation of stone with laser, stone analysis pending. The string/dangler was left attached externally taped to phallus. Stent removed by pulling on dangler, Pt tolerated well. Diet sheet given to patient. Discussed further evaluation with 24 hr. urine. 05/26/23--Toby is a 37-year-old male who was evaluated at [facility] for left flank pain. CT imaging noted a 6 x 4 mm left distal ureteral stone. The patient underwent cystoscopy ureteroscopy and stent placement. 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 The patient had a KUB done in follow-up the official reading from the radiologist report is not transcribed as yet. I have reviewed the KUB film, I do not visualize the calcification along the distal stent. ON LICENSE OF [facility] Medical History Urethral stone Hyperlipidemia Annual physical exam Surgical History Hx of cystoscopy (05/04/23) Family History Father No problems noted. Mother Breast cancer Social History Household Members Other:: , works for [employer] Housing: House Patient Tobacco Use Status: Never used Tobacco e-Cigarette/Vaping Use: Never Used service: No Current occupational status: unemployed Cognitive needs: No Hearing needs: No Vision needs: Yes (contacts) Review of Systems Const All systems reviewed & are unremarkable except as noted in HPI and below Reports no additional complaints Eyes Reports no additional complaints ENT Reports no additional complaints Card Reports no additional complaints Resp Reports no additional complaints GI Reports no additional complaints Reports as per HPI Musc Reports no additional complaints Skin/Breast Reports system reviewed and no additional complaints, except as documented Neuro Reports no additional complaints Psych Reports no additional complaints Endo Reports no additional complaints Luis Antonio/Lymph Reports no additional complaints Aller/Immun Reports no additional complaints Results AMB Urinalysis, Automated UA Leukoctes 0 Guevara/uL Last Edit by KT Wilson on 09/06/23 12:07 UA Nitrite Negative Last Edit by KT Wilson on 09/06/23 12:07 UA Urobilinogen 0.2 mg/dL Last Edit by KT Wilson on 09/06/23 12:0 7 UA Protein 15 mg/dL Last Edit by TK Wilson on 09/06/23 12:07 UA pH 5.5 Last Edit by KT Wilson on 09/06/23 12:07 UA Blood 0 Lloyd/uL Last Edit by KT Wilson on 09/06/23 12:07 UA Specific [place] 1.015 Last Edit by KT Wilson on 09/06/23 12: 07 UA Ketone Negative Last Edit by KT Wilson on 09/06/23 12:07 UA Bilirubin 0 mg/dL Last Edit by KT Wilson on 09/06/23 12:07 UA Glucose 0 mg/dL Last Edit by KT Wilson on 09/06/23 12:07 Results Reviewed Results Reviewed: Laboratory Last Values Urine pH (Auto) 5.5 09/06/23 12:06 Specific [place] (Auto) 1.015 09/06/23 12:06 Urine Protein (Auto) 15 mg/dL 09/06/23 12:06 Glucose (UA)(Auto) 0 mg/dL 09/06/23 12:06 Urine Ketones (Auto) Negative 09/06/23 12:06 Urine Blood (Auto) 0 Lloyd/uL 09/06/23 12:06 Urine Nitrite (Auto) Negative 09/06/23 12:06 Urine Bilirubin (Auto) 0 mg/dL 09/06/23 12:06 Urine Urobilinogen (Auto) 0.2 mg/dL 09/06/23 12:06 Leukocyte Esterase (Auto) 0 Guevara/uL 09/06/23 12:06 Assessment & Plan Assessment & Plan (1) Calcium nephrolithiasis: Code(s): 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 The patient expressed understanding and agreement with the above treatment plan. The patient is aware they should contact our office by phone for worsening of their current condition or the appearance of new symptoms. Compliance is encouraged with any medications and followup testing that is ordered. It is a privilege to be allowed the opportunity to participate in the urologic care of your patient. If you have any questions or concerns regarding treatment for the above conditions please do not hesitate to contact me. The office telephone contact is [phone]. This note is constructed in part using voice recognition software. While every effort has been made to ensure accuracy carpenter maintenance errors may have been included. Yours sincerely, Rich Mendoza MD Coding Level of Care Code Est Pt Level 4 (93846) Diagnoses Calcium nephrolithiasis N20.0 Hyperoxaluria R82.992
== END 2023-09-06 12:21 | disposition home or self-care (01) ==
PROVIDERS: PCP Internal Medicine; Visit Provider Urology
DX: N20.0 Calculus of kidney (principal); R82.992 Hyperoxaluria
CPT/HCPCS: 99214

== ENCOUNTER → 2023-09-06 11:48 | Outpatient (BNVA) | payer OTHER, SELFPAY | PROVIDERS: PCP Internal Medicine; Visit Provider Urology | DX: N20.0 Calculus of kidney (principal); R82.992 Hyperoxaluria | CPT/HCPCS: 81003 ==

== ENCOUNTER 2023-09-29 09:09 | Outpatient (REF) | payer OTHER, SELFPAY ==
[2023-09-29 11:09] LABS: MANUAL DIFF FLAG NO
[2023-09-29 11:15] LABS: Basophils Percent Auto 0.7 % (0-2); Eosinophils Absolute Auto 0.1 X10*3/uL (0.0-0.4); Eosinophils Percent Auto 1.2 % (0-4); Hematocrit 41.4 % (42.0-52.0); Hemoglobin 14.2 g/dl (14.0-18.0); Imm Gran Abs Auto 0.01 X10*3/uL (0.00-0.03); Imm Gran Pct Auto 0.2 % (0.0-0.4); Lymphocytes Absolute Auto 1.5 X10*3/uL (1.2-4.9); Lymphocytes Percent Auto 34.4 % (20-40); Mean Corpuscular HGB Conc 34.3 g/dl (31.0-36.0); Mean Corpuscular Hemoglobin 30.7 pg (27.0-33.0); Mean Corpuscular Volume 89.4 fL (80.0-98.0); Mean Platelet Volume 10.1 fL (9.4-12.4); Monocytes Absolute Auto 0.4 X10*3/uL (0.1-1.2); Monocytes Percent Auto 9.8 % (2-11); Neutrophils Absolute Auto 2.3 x10*3/uL (2.0-8.3); Neutrophils Percent Auto 53.7 % (45-73); Platelet Count 262 X10*3/uL (160-400); Red Blood Count 4.63 X10*6/uL (4.60-5.80); Red Cell Distribution Width 12.9 % (11.0-16.0); White Blood Count 4.3 X10*3/uL (4.8-10.8)
[2023-09-29 11:39] LABS: Alanine Aminotransferase 23 U/L (0-40); Albumin Level 4.4 g/dL (3.5-5.0); Alkaline Phosphatase 61 U/L (39-117); Anion Gap 12 (12-20); Aspartate Amino Transferase 16 U/L (5-37); Bilirubin Total 0.7 mg/dL (0.0-1.0); Blood Urea Nitrogen 14 mg/dL (9-16); Calcium 9.9 mg/dL (8.4-10.2); Carbon Dioxide 27 mmol/L (22-29); Chloride 106 mmol/L (96-108); Cholesterol 241 mg/dL (<200); Estimated Glomerular Filt Rate > 60; Glucose Fasting 99 mg/dL (60-99); HDL Cholesterol 52 mg/dL (>40); LDL Cholesterol Calculated 168 mg/dL (<100); Potassium 4.4 mmol/L (3.3-5.1); Sodium 141 mmol/L (135-145); Total Protein 7.7 g/dL (6.5-8.0); Triglycerides 106 mg/dL (<150)
== END 2023-09-29 09:10 | disposition home or self-care (01) ==
LOC: HO.HMGCLDS 09:09
PROVIDERS: PCP Internal Medicine; Visit Provider Internal Medicine
DX: Z00.00 Encounter for general adult medical examination without abnormal findings (principal); D64.9 Anemia, unspecified; E78.5 Hyperlipidemia, unspecified
CPT/HCPCS: 36415; 80053; 80061; 85025

== ENCOUNTER 2023-10-01 12:01 | Outpatient (AMB) | payer OTHER, SELFPAY ==
[2023-10-01 12:09] VITALS: BP 120/80; PULSE 86; O2SAT 98; BMI 29.8
--- NOTE | 2023-10-01 12:09 | A.OFFPC_ITS ---
Vital Signs 10/01/23 12:09 Height 5 ft 11 in Weight 214 lb BMI 29.8 BP 120/80 Blood Pressure Location Lt brachial Position Sitting Pulse 86 Pulse Source Pulse Oximeter Pulse Oximetry (%) 98 Oxygen Delivery Method Room Air Intake Visit Reasons: Annual PE Intake Note: Pt is here today for PE. Allergies No Known Allergies Allergy (Verified 10/01/23 12:12) Medication List - Last Reconciled 10/01/23 by Silva Arriaga MD pyridoxine (vitamin B6) 100 mg PO DAILY 90 days Tobacco use date assessed: 10/01/23 Dental Screening Dental Screen Date: 10/01/23 Did you have a dental visit in the last 12 months?: Yes Did you have a dental problem in the last 6 months where you did not have access to dental care?: No Was dental information given to patient?: Patient has dentist HPI Annual PE HPI Details Pt presents for PE. PFSH Medical History Urethral stone Hyperlipidemia Annual physical exam Surgical History Hx of cystoscopy (05/04/23) Family History Father No problems noted. Mother Breast cancer Social History Household Members Other:: , works for [employer] Housing: House Patient Tobacco Use Status: Never used Tobacco e-Cigarette/Vaping Use: Never Used service: No Current occupational status: unemployed Cognitive needs: No Hearing needs: No Vision needs: Yes (contacts) Questionnaire PHQ-9 Over the last 2 weeks, how often have you been bothered by any of the following problems? 1. Little interest or pleasure in doing things: not at all 2. Feeling down, depressed, or hopeless: not at all 3. Trouble falling or staying asleep, or sleeping too much: not at all 4. Feeling tired or having little energy: not at all 5. Poor appetite or overeating: not at all 6. Feeling bad about yourself - or that you are a failure or have let yourself or your family down: not at all 7. Trouble concentrating on things, such as reading the newspaper or watching television: not at all 8. Moving or speaking so slowly that other people could have noticed. Or the opposite - being so fidgety or restless that you have been moving around a lot more than usual: not at all 9. Thoughts that you would be better off or of hurting yourself in some way: not at all Total score: 0 Depression Screening Interpretation: Negative Depression Screening Done: Yes Source: Developed by Drs. Peter Cintron, Jessenia Nelson, Dennis Christopher and colleagues, with an educational tamra from [employer]. Thrive Questionnaire Date Thrive assessed: 09/16/22 I am a: Patient What is your living situation today?: I have a steady place to live Within the past 12 months, did the food you bought not last and you didn't have the money to get more?: Never true Within the past 12 months, did you worry whether your food would run out before you got money to buy more?: Never true Do you have trouble paying for medicines?: No Do you have trouble getting transportation to medical appointments?: No Do you have trouble paying your heating and electricity bill?: No Do you have trouble taking care of your child, family member or friend?: No Do you have trouble with day-to-day activities such as bathing, preparing meals, shopping, managing finances, etc.?: No Are you currently unemployed and looking for a job?: No Are you interested in more education?: Yes Please select the resources that you would like help with: None Currently or been in a relationship where the following occur: No concerns reported and I choose not to answer THRIVE Score: 0 AUDIT C Alcohol Use Questionnaire (AUDIT-C) 1. How often do you have a drink containing alcohol?: Monthly or less 2. How many drinks containing alcohol do you have on a typical day when you are drinking?: 1 or 2 3. How often do you have six or more drinks on one occasion?: Never Total Score: 1 ARABELLA-7 AMB Questionnaire ARABELLA-7 Date ARABELLA - 7 assessed: 09/16/22 Feeling nervous, anxious, or on edge: 0 = Not at all Not being able to stop or control worryin = Not at all Worrying too much about different things: 0 = Not at all Trouble relaxin = Not at all Being so restless that it is hard to sit still: 0 = Not at all Becoming easily annoyed or irritable: 0 = Not at all Feeling afraid as if something awful might happen: 0 = Not at all Total ARABELLA-7 score (0-4 normal; 5-9 mild; 10-14 moderate; 15-21 severe): 0 Source: Developed by Drs. Peter Cintron, Jessenia Nelson, Dennis Christopher and colleagues, with an educational tamra from [employer]. Review of Systems Const All systems reviewed & are unremarkable except as noted in HPI and below Reports no additional complaints Eyes Reports no additional complaints ENT Reports no additional complaints Card Reports no additional complaints Resp Reports no additional complaints GI Reports no additional complaints Physical exam (Primary Care) Vital Signs: Last Vital Signs Pulse 86 10/01/23 12:09 BP 120/80 10/01/23 12:09 Pulse Ox 98 10/01/23 12:09 Oxygen Delivery Method Room Air 10/01/23 12:09 BMI result Body Mass Index 29.8 Tobacco/Smoking Status: Tobacco use Status Tobacco use date assessed 10/01/23 10/01/23 12:16 Patient Tobacco Use Status Never used Tobacco 10/01/23 12:16 e-Cigarette/Vaping Use Never Used 10/01/23 12:09 PHQ-9: PHQ-9 Score PHQ-9: Total score 0 10/01/23 12:09 Depression Screening Interpretation: Negative Thrive Assessment: Date of Thrive Assessment Date Thrive assessed 09/16/22 10/01/23 12:09 Currently or been in a relationship where the following occur: No concerns reported and I choose not to answer Const General: no acute distress HENMT Head: Yes normal to inspection Ears: hearing grossly normal bilaterally Face and sinus: Yes normal facial exam Mouth: Normal oral and palatal mucosa present Throat: Yes posterior oropharynx normal Eyes General: appearance normal, both eyes and all related structures Neck Neck: Yes no lymphadenopathy and Yes supple Resp Effort & Inspection: normal respiratory effort Auscultation: clear to auscultation bilaterally Cardio Rhythm: regular rhythm Heart sounds: S1 normal heart sound present and S2 normal heart sound present GI Inspection: Yes normal to inspection Palpation (GI): Soft to palpation Percussion: Yes normal to percussion Auscultation: normal bowel sounds Assessment and Plan Assessment & Plan (1) Hyperlipidemia: Code(s): E78.5 - Hyperlipidemia, unspecified Plan: Continue low-cholesterol diet increase physical activity discussed with the patient (2) Annual physical exam: Code(s): Z00.00 - Encounter for general adult medical examination without abnormal findings Plan: Well-balanced diet regular physical activity discussed with the patient (3) Hydronephrosis with renal calculous obstruction: Comment: 04/2023 s/p stent f/u urology Code(s): N13.2 - Hydronephrosis with renal and ureteral calculous obstruction Plan: Follow-up with urology Orders: Orders Comprehensive [place]. Panel Fast 1 Year N13.2 - Hydronephrosis with renal and ureteral calculous obstruction Lipid Panel 1 Year N13.2 - Hydronephrosis with renal and ureteral calculous obstruction US renal BI Today N13.2 - Hydronephrosis with renal and ureteral calculous obstruction UA w Microscopic 1 Year N13.2 - Hydronephrosis with renal and ureteral calculous obstruction Complete Blood Count Auto Diff 1 Year N13.2 - Hydronephrosis with renal and ureteral calculous obstruction Vitamin B12 1 Year D64.9 - Anemia, unspecified Coding Level of Care Code Est Pt Prev Care 18-39y([id number]) Diagnoses Hyperlipidemia E78.5 Annual physical exam Z00.00 Hydronephrosis with renal calculous obstruction N13.2
== END 2023-10-01 12:59 | disposition home or self-care (01) ==
PROVIDERS: PCP Internal Medicine; Visit Provider Internal Medicine
DX: E78.5 Hyperlipidemia, unspecified (principal); Z00.00 Encounter for general adult medical examination without abnormal findings; N13.2 Hydronephrosis with renal and ureteral calculous obstruction
CPT/HCPCS: 99395

== ENCOUNTER 2023-10-21 11:28 | Outpatient (REF) | payer OTHER, SELFPAY ==
--- NOTE | ~2023-10-21 | US_ITS ---
EXAMINATION: US RETROPERITONEAL LIMITED (RENAL ONLY) CLINICAL INFORMATION: Hydronephrosis with renal and ureteral calculus obstruction. COMPARISON: X-ray abdomen KUB 05/21/2023. CT abdomen and pelvis 05/03/2023. TECHNIQUE: Real-time imaging of the kidneys. FINDINGS: RIGHT KIDNEY: 13.4 x 4.7 x 5.7 cm (SAG x AP x TRV). The kidney is normal in size, contour, and echogenicity. Renal cortical thickness is normal. No calculi or focal parenchymal lesions. No hydronephrosis. LEFT KIDNEY: 13.3 x 5.0 x 6.3 cm (SAG x AP x TRV). The kidney is normal in size, contour, and echogenicity. Renal cortical thickness is normal. No calculi or focal parenchymal lesions. No hydronephrosis. ADDITIONAL FINDINGS: Incidental note is made of mildly increased hepatic attenuation suggesting steatosis. US/US renal BI IMPRESSION: 1. Normal-appearing kidneys. 2. Incidentally noted hepatic steatosis. Electronically signed by: Lb Dimas MD 10/27/2023 03:09 PM EDT
== END 2023-10-21 11:29 | disposition home or self-care (01) ==
LOC: HO.HMGCX 11:28
PROVIDERS: PCP Internal Medicine; Visit Provider Internal Medicine
DX: N13.2 Hydronephrosis with renal and ureteral calculous obstruction (principal)
CPT/HCPCS: 76775